=== PATIENT | male | born 1930 | race Caucasian/White ===

== ENCOUNTER 2017-03-09 14:46 | Inpatient (IN) | payer MEDICARE ==
[2017-03-09] MEDS ORDERED: Metoprolol Tartrate 5 MG/5 ML VIAL ONE (17:34)
[2017-03-09] MEDS ORDERED: Sodium Chloride 0.9% 1,000 ML IV SCH (20:15)
[2017-03-09] MEDS ORDERED: hydrALAZINE 20 MG/ML VIAL SLOW IVP PRN (22:09)
[2017-03-09] MEDS ORDERED: Ondansetron HCl/PF 4 MG/2 ML Vial IVP PRN (22:09)
[2017-03-09] MEDS ORDERED: Ondansetron ODT 4 MG TAB PO PRN (22:09)
[2017-03-09] MEDS ORDERED: Acetaminophen 650 MG Suppository PR PRN (22:09)
[2017-03-09] MEDS ORDERED: Cefepime 1 GM in Sodium Chloride 0.9% 100 ML IVPB SCH (22:30)
[2017-03-09] MEDS ORDERED: Vancomycin HCl 1 GM in Premix Bag 1 BAG IVPB SCH (23:00)
[2017-03-09] MEDS ORDERED: Diltiazem HCl 125 MG, Admixture Fee 1 EACH in Sodium Chloride 0.9% 100 ML SLOW IVP SCH (23:30)
[2017-03-10] MEDS: Cefepime 2 GM, Syringe 2.5 ML in Sterile Water 10 ML SLOW IVP SCH ×2 (00:01→12:52)
[2017-03-10] MEDS: D5 1/2 NS w/40 mEq KCL 1,000 ML IV SCH ×2 (00:16→17:16)
[2017-03-10] MEDS ORDERED: Digoxin 0.5 MG/2 ML AMP ONE ×2 (00:26→02:09)
--- NOTE | 2017-03-10 02:36 | HP ---
DATE OF ADMISSION: 03/09/2017 PRIMARY CARE PROVIDER: Dr. Ashwini Tejeda. CHIEF COMPLAINT: Atrial fibrillation with rapid ventricular response. HISTORY OF PRESENT ILLNESS: This is an 86-year-old male, who was recently discharged from [facility] to [facility], status post right femur and hip fracture, status post open reduction and internal fixation on 02/24/2017. The patient was s ent to [facility] for deconditioning, ambulatory training as well as concern for dysphagia an d aspiration. The patient had recently undergone a modified barium swallow evaluation on 03/08/2017 showing evidence of aspiration and penetration with plans for PEG tube placement on 03/09/2017. Th e patient was being prepped to move to the preoperative area at [facility] when he was disc overed with atrial fibrillation and rapid ventricular rates. The patient was transferred to the [facility] room at which the heart rate had improved into the 80s-90s and the patient was clinically sta ble. The patient had been noted with atrial fibrillation with rapid ventricular response during his admission to [facility] from 02/22/2017 through 03/06/2017. The patient had been placed o n sotalol therapy and aspirin after evaluation by the Cardiology Service and the Electrophysiology S ervice. The patient was not deemed an appropriate candidate for any aggressive intervention with me dical therapy recommended. In the emergency department, the patient received Lopressor 5 mg x1 dose and was transferred to the telemetry unit for further evaluation. PAST MEDICAL HISTORY: 1. Right hip fracture status post mechanical fall with open reduction and internal fixation on 02/06. 2. Atrial fibrillation with variable rate response, on aspirin therapy. 3. History of dementia. 4. History of delirium. 5. Hypertension. 6. Deconditioning. 7. Dysphagia with likely aspiration. 8. History of recurrent falls. 9. Osteoarthritis. 10. History of prostate hyperplasia. 11. History of skin cancer. PAST SURGICAL HISTORY: 1. Status post right total knee arthroplasty. 2. Status post skin cancer removals. 3. Status post hernia repair. 4. Status post open reduction and internal fixation of right hip and femur on 02/24/2017. CURRENT MEDICATIONS: Based on recent discharge 03/06/2017. 1. Aspirin 325 mg 1 tab p.o. daily. 2. Vitamin B12 of 1000 mcg p.o. daily. 3. Multivitamin 1 tab p.o. daily. 4. Simethicone 80 mg p.o. daily. 5. Sotalol 80 mg p.o. b.i.d. 6. Vision Formula Lutein tab 1 tablet p.o. daily. ALLERGIES: No known drug allergies. FAMILY HISTORY: Positive for coronary artery disease. SOCIAL HISTORY: The patient resides in [place], [place], retired. No current alcohol, tobacco or i llicit drug use. Accompanied by his son in the hospital. Currently, residing in [facility], status post right hip fracture. REVIEW OF SYSTEMS: The following complete review of systems was negative, unless otherwise mentione d in the HPI or below: Constitutional: Weight loss or gain, ability to conduct usual activities. Skin: Rash, itching. Eyes: Double vision, pain. ENT/Mouth: Nose bleeding, neck stiffness, pain, tenderness. Cardiovascular: Palpitations, dyspnea on exertion, orthopnea. Respiratory: Shortness of breath, wheezing, cough, hemoptysis, fever or night sweats. Gastrointestinal: Poor appetite, abdominal pain, heartburn, nausea, vomiting, constipation, or diar chivo. Genitourinary: Urgency, frequency, dysuria, nocturia. Musculoskeletal: Pain, swelling. Neurologic/Psychiatric: Anxiety, depression. Allergy/Immunologic: Skin rash, bleeding tendency. PHYSICAL EXAMINATION: VITAL SIGNS: Currently, blood pressure 133/74, pulse 101, respiratory rate 19, temperature 98 degre es Fahrenheit, O2 saturation 99% on 3 liters per minute by nasal cannula. GENERAL APPEARANCE: This is an 86-year-old male. Alert, minimally responsive, in no acut e distress. HEENT: Pupils are equal, round, and reactive to light and accommodation. Extraocular muscles are i ntact. No scleral icterus. Bilateral conjunctival injection. Nares patent. OP is clear. Oral mu cosa dry appearing. NECK: Supple, no cervical adenopathy, no thyromegaly, no carotid bruits, no JVD appreciated. Cervi sana spine with full active and passive range of motion. CHEST: Diminished breath sounds in the bases bilaterally. CARDIOVASCULAR: S1, S2 with irregular rate and rhythm. ABDOMEN: Flat, soft, nontender, nondistended. Bowel sounds are positive in all four quadrants. Th ere is no hepatosplenomegaly, no abdominal bruits, no rebound or guarding appreciated. EXTREMITIES: Warm and dry with fair turgor. No clubbing, cyanosis or asymmetric edema appreciated. Pulses are palpable distally at the dorsalis pedis, posterior tibial, and popliteal arteries bilat erally. Capillary refill less than 2 seconds. NEUROLOGIC: Cranial nerves II-XII are grossly intact. The patient not observed ambulatory during t his exam. Alert and oriented x1. PERTINENT LABORATORY AND X-RAY FINDINGS: Sodium 147, potassium is 3.1, chloride 110, CO2 of 27, BUN 21, creatinine 0.62, estimated GFR greater than 90, glucose 181, calcium 8.5. CBC showed a white b lood cell count of 15.8, hemoglobin 11, hematocrit 36, MCV 110, platelet count 420 with 65% neutroph ils. Portable chest x-ray dated 03/08/2017 showed bilateral infiltrates concerning for aspiration p neumonia. EKG dated 03/09/2017 by my interpretation shows atrial fibrillation with rapid ventricula r response, heart rates in the 150s to 160s. Normal R-wave progression noted in the precordial lead s. Normal axis. ST depression noted in leads V4 through V6. Current telemetry showing atrial fibr illation with heart rates in the 80s. ASSESSMENT AND PLAN: 1. Paroxysmal atrial fibrillation with rapid ventricular response. We will continue telemetry beverly toring. Resume sotalol 80 mg p.o. b.i.d. We will consider Cardizem infusion if heart rate increase s or becomes labile. Continue aspirin 325 mg daily. No anticoagulation due to history of recurrent falls and recent hip fracture. We will consult Cardiology Service in the a.m. for any further kitty mmendations. 2. Question of aspiration pneumonia. The patient with known history of dysphagia with plans for PE G tube placement on 03/09/2017. We will continue cefepime 1 gram IV q.12 hours with additional vanc omycin 1 gram IV q.12 hours. General pulmonary supportive measures. General aspiration precautions. 3. Dysphagia. Plan for PEG tube placement. We will consult GI Service for further evaluation and timing of procedure. We will continue telemetry monitoring as stated previously. N.p.o. pending ev aluation. Consult Speech Therapy in the a.m. 4. Hypernatremia. We will continue intravenous fluids and repeat sodium level in the a.m. 5. Hypokalemia. Mild. Continue potassium chloride supplementation and repeat potassium level in t he a.m. 6. Status post right hip fracture post fall. Continue general fall precautions. Pain control as c linically indicated. Return to inpatient rehabilitation after this admission. 7. Prophylaxis. Sequential compression devices while in bed. Pepcid 20 mg IV q.12 hours. General fall precautions. Speech therapy evaluation in the a.m. 8. Code status is DO NOT RESUSCITATE, DO NOT INTUBATE. Surrogate medical decision maker is patient 's son.
[2017-03-10 05:41] LABS: Band 16 % (5-11); Hematocrit 34.6 % (42.0-52.0); Hypochromia SLIGHT = 6-15 cells (100X) (0-5/hpf); Mean Platelet Volume 6.3 fL (7.4-10.4); Neutrophil 79 % (42-75); Red Blood Cell (RBC) Count 3.14 mill/uL (4.70-6.10); White Blood Cell (WBC) Count 15.8 thou/uL (4.8-10.8)
[2017-03-10 05:43] LABS: Anion Gap 13 mmol/L (10-20); BUN (Urea Nitrogen) 16 mg/dL (8.4-25.7); Calc. Creatinine Clearance 0 mL/min (70-130); Calcium 8.2 mg/dL (7.8-10.44); Carbon Dioxide 23 mmol/L (23-31); Chloride 113 mmol/L (98-107); Estimated GFR-MDRD Greater than 90
[2017-03-10] MEDS ORDERED: Sotalol HCl 80 MG TAB PO SCH (09:00)
[2017-03-10] MEDS: Famotidine/PF 20 mg/2ml Vial SLOW IVP SCH ×2 (10:27→20:50)
[2017-03-10] MEDS: Vancomycin HCl 500 MG in Sodium Chloride 0.9% 100 ML IVPB SCH ×2 (10:27→20:50)
--- NOTE | 2017-03-10 12:45 | PDOC.PN ---
- Subjective Encounter Start Date: 03/10/17 Encounter Start Time: 10:15 Subjective: lethargic, not oriented - Objective Resuscitation Status: Resuscitation Status DNR:Do Not Resuscitate MAR Reviewed: Yes Vital Signs & Weight: Vital Signs (12 hours) Temp Pulse Resp BP Pulse Ox 03/10/17 11:30 99.0 F 137 H 24 H 113/60 99 03/10/17 10:28 92 03/10/17 07:40 98.9 F 92 24 H 138/61 98 03/10/17 04:00 96.8 F L 116 H 20 124/67 96 03/10/17 02:31 95 03/10/17 02:15 147 H I&O: 03/09/17 03/10/17 03/11/17 06:59 06:59 06:59 Intake Total 755 Balance 755 Result Diagrams: 03/10/17 04:49 03/10/17 04:49 Phys Exam - Physical Examination HEENT: sclera anicteric dry mucosa Neck: no JVD, supple Respiratory: no rales rhonchi+ Cardiovascular: no significant murmur, irregular Gastrointestinal: soft, non-tender, positive bowel sounds Musculoskeletal: pulses present right hip surgical scar appears clean Neurological: non-focal Dx/Plan (1) Atrial fibrillation with RVR Code(s): I48.91 - UNSPECIFIED ATRIAL FIBRILLATION Status: Acute (2) Closed right femoral fracture Code(s): S72.91XA - UNSP FRACTURE OF RIGHT FEMUR, INIT FOR CLOS FX Status: Chronic Comment: had right femur ORIF on 02/24/2017 (3) Dementia Code(s): F03.90 - UNSPECIFIED DEMENTIA WITHOUT BEHAVIORAL DISTURBANCE Status: Chronic Qualifiers: Dementia type: Alzheimer's disease (4) Dysphagia Code(s): R13.10 - DYSPHAGIA, UNSPECIFIED Status: Chronic Qualifiers: Dysphagia type: oropharyngeal phase Qualified Code(s): R13.12 - Dysphagia, oropharyngeal phase - Plan is on cefepime and vanc for asp pna -: home dose sotalol with aspirin for afib -: peg per GI advice -: is on iv fluids with potassium supplement * . Review of Systems - Medications/Allergies Allergies/Adverse Reactions: Allergies Allergy/AdvReac Type Severity Reaction Status Date / Time No Known Drug Allergies Allergy Verified 02/22/17 01:50 Medications: Current Medications Acetaminophen (Tylenol) 650 mg [place] Q4H PRN PRN Reason: Headache/Fever or Mild Pain Famotidine (Pepcid) 20 mg SLOW IVP Q12HR [facility] Last Admin: 03/10/17 10:27 Dose: 20 mg Hydralazine HCl (Apresoline) 10 mg SLOW IVP Q4H PRN PRN Reason: Systolic BP > 180 Vancomycin HCl 500 mg/ Sodium (Chloride) 100 mls @ 100 mls/hr IVPB Q12HR [facility] Last Admin: 03/10/17 10:27 Dose: 100 mls Cefepime HCl 2 gm/ Syringe 2.5 (ml/ Sterile Water) 12.5 mls @ 150 mls/hr SLOW IVP 1200,2359 [facility] Last Admin: 03/10/17 00:01 Dose: 12.5 mls Potassium Chloride/Dextrose/Sod Cl (D5 1/2 Ns W/40 Meq Kcl) 1,000 mls @ 75 mls/ hr IV .[id number] [facility] Last Admin: 03/10/17 00:16 Dose: 1,000 mls Diltiazem HCl 125 mg/Miscellaneous Medication 1 each/ Sodium Chloride 125 mls @ 5 mls/hr SLOW IVP INF MORALES; As Directed PRN Reason: Protocol Last Admin: 03/10/17 00:08 Dose: 125 mls Ondansetron HCl (Zofran Odt) 4 mg PO Q6H PRN PRN Reason: Nausea/Vomiting Ondansetron HCl (Zofran) 4 mg IVP Q6H PRN PRN Reason: Nausea/Vomiting Sodium Chloride (Flush - Normal Saline) 10 ml IVF Q12HR [facility] Last Admin: 03/10/17 10:28 Dose: 10 ml Sodium Chloride (Flush - Normal Saline) 10 ml IVF PRN PRN PRN Reason: Saline Flush Sotalol HCl (Betapace) 80 mg PO BID [facility] Last Admin: 03/10/17 10:28 Dose: Not Given
[2017-03-10] MEDS ORDERED: Amiodarone HCl 150 MG in Dextrose 5% in Water 100 ML IVPB SCH ×2 (13:30)
--- NOTE | 2017-03-10 14:52 | CON ---
DATE OF CONSULTATION: 03/10/2017 HISTORY OF PRESENT ILLNESS: The patient is an unfortunate 86-year-old gentleman with a history of severe dementia, who was to undergo PEG placement and was noted to be in irregular heart rate. The patient was seen recently a after hip fracture. He was diagnosed with paroxysmal atrial fibrillation. The patient was felt to be at prohibitive risk for anticoagulation. He was placed on Betapace. The patient was to undergo surgery today when he was found to have a rapid irregular heart rhythm. The patient is unable to give a coherent history. PAST MEDICAL HISTORY: 1. Atrial flutter/fibrillation. 2. Recent hip fracture. 3. Dementia. 4. Hypertension. 5. History of multiple falls. PAST SURGICAL HISTORY: Knee surgery, skin surgery, and hernia repair. MEDICATIONS: Aspirin 325 and Betapace 80 b.i.d. ALLERGIES: No known drug allergies. REVIEW OF SYSTEMS: Unobtainable. SOCIAL HISTORY: He lives in [facility]. PHYSICAL EXAMINATION: GENERAL: A very thin gentleman, in no acute distress. VITAL SIGNS: Blood pressure 113/60, heart rate is 120, irregular. NECK: Full. LUNGS: Coarse breath sounds bilateral. HEART: Irregular rate and rhythm, normal S1, S2. ABDOMEN: Nondistended. EXTREMITIES: Showed trace edema. SKIN: Warm and dry. VASCULAR: Radial pulses are 2+. LABORATORY DATA: White blood cell count 15.8, hemoglobin 10.3, hematocrit 34.6 , platelets 364. Sodium 146, potassium 3.3, chloride 113, bicarbonate was 23, BUN 16, creatinine 0.53. The EKG obtained to reveal atrial fibrillation with a marked ST-T wave abnormality suggestive of ischemia. Telemetry monitoring revealed multifocal atrial tachycardia. IMPRESSION: 1. Atrial fibrillation. 2. Hypertension. 3. Dementia. 4. History of recent multiple falls. 5. Cachexia. PLAN: This gentleman has rapid atrial fibrillation We would recommend the patient switch to IV amiodarone. The patient is at prohibitive risk for anticoagulation. We will follow this patient with you through his hospitalization. [facility]
--- NOTE | 2017-03-10 15:05 | CON ---
DATE OF CONSULTATION: 03/10/2017 REQUESTING PHYSICIAN: Dr. Davidson. REASON FOR CONSULTATION: PEG tube placement. HISTORY OF PRESENT ILLNESS: Mr. Jonel Roy is an 86-year-old gentleman who was admitted to the [facility] yesterday. He had a recent hospitalization here after right hip fracture and underwent open reduction and internal fixation on 02/24/2017. He has been at [facility] for rehabilitation and d econditioning. Unfortunately while there, there has been concern for dysphagia. He has had multipl e episodes of aspiration and a modified barium swallow on 03/08/2017 showing evidence of aspiration and penetration. We had planned on PEG tube placement as an outpatient yesterday, but in the [facility] area, he was found to be in rapid ventricular response with his atrial fibrillation. He was thus transferred to the emergency room and subsequently admitted for rate control. Dr. Blanchard has seen him this morning and started him on amiodarone and it appears his heart rate has been up and d own since admission, but this is essentially asymptomatic. The patient is demented and has been sandra ling with delirium overnight. The patient's family is on board with plan for PEG tube placement. N o prior abdominal surgeries. PAST MEDICAL HISTORY: 1. Right hip fracture, status post fall with open reduction internal fixation on 02/24/2017. 2. Atrial fibrillation with variable rate response, on aspirin. 3. Dementia. 4. Delirium. 5. Hypertension. 6. Deconditioning. 7. Dysphagia with aspiration, oropharyngeal. 8. History of recurrent falls. 9. Osteoarthritis. 10. Prostatic hyperplasia. 11. Skin cancer. PAST SURGICAL HISTORY: 1. Right total knee arthroplasty. 2. Skin cancer removal. 3. Status post hernia repair. MEDICATIONS: Aspirin 325 mg daily, vitamin B12, multivitamin, simethicone, sotalol, Vision Formula with Lutein tab, amiodarone started today. ALLERGIES: No known drug allergies. FAMILY HISTORY: Positive for coronary artery disease. SOCIAL HISTORY: No current alcohol, tobacco or drug use. Currently residing at [facility] after recent right hip fracture. REVIEW OF SYSTEMS: Unable to obtain since the patient is demented and in delirium and is unable to report symptoms respond to questions appropriately. PHYSICAL EXAMINATION: VITAL SIGNS: Temperature 99.0, blood pressure 113/60, pulse 137, respirations 24 per minute, 99% ox ygen saturation on 2 liters nasal cannula. GENERAL: Elderly frail, chronically ill gentleman, lying in bed comfortably. MENTAL: He is alert, but disoriented. He is able to speak, but incoherently. SKIN: Several abrasions to the upper and lower extremities. No scars to the anterior abdomen and l eft upper quadrant. EYES: No scleral icterus. Extraocular movements intact. ENT: Mucous membranes moist, no oral lesions. LYMPH: No submandibular, supraclavicular lymphadenopathy. THYROID: Nontender to palpation. HEART: Irregular rate and rhythm. LUNGS: Diminished breath sounds at the bases bilaterally. No wheezing, no respiratory distress. ABDOMEN: Flat, soft, and nontender. Bowel sounds present. No scars to the anterior abdomen and th e left upper quadrant. EXTREMITIES: No peripheral edema. VESSELS: Radial pulses 2+ bilaterally. NEUROLOGICAL: Cranial nerves II through XII grossly intact. Moving all extremities. LABORATORY STUDIES: WBC 15.8, hemoglobin 10.3, platelets 364, sodium 146, potassium 3.3, BUN 16, cr eatinine 0.53, glucose 147, calcium 8.2. ASSESSMENT AND PLAN: 1. Oropharyngeal dysphagia with recurrent aspiration. 2. Atrial fibrillation with rapid ventricular response. I see no contraindication to proceeding wi PEG placement tomorrow. I again discussed this with the patient's and that is everyone's de sire for us to proceed. We will plan for PEG placement tomorrow morning. Please call back with any questions or concerns in the meantime.
[2017-03-10] MEDS: Amiodarone HCl 450 MG, Admixture Fee 1 EACH in Dextrose 5% in Water 250 ML IVPB SCH ×3 (17:16)
[2017-03-11] MEDS: Cefepime 2 GM, Syringe 2.5 ML in Sterile Water 10 ML SLOW IVP SCH ×2 (00:40→12:38)
[2017-03-11] MEDS: Amiodarone HCl 450 MG, Admixture Fee 1 EACH in Dextrose 5% in Water 250 ML IVPB SCH ×3 (03:14)
[2017-03-11] MEDS: D5 1/2 NS w/40 mEq KCL 1,000 ML IV SCH ×2 (03:29→10:38)
[2017-03-11] MEDS ORDERED: Artificial Tears 18 DROP/0.9 ML EA EYE PRN (08:01)
[2017-03-11] MEDS ORDERED: Bisacodyl 10 MG SUPP PR PRN (08:01)
[2017-03-11] MEDS ORDERED: Lidocaine 1% PF 5 ML VIAL ONE (08:07)
[2017-03-11] MEDS ORDERED: PHENYLEPHRINE-NS 100 MCG/ML 10 ML SYRINGE ONE (08:07)
[2017-03-11] MEDS ORDERED: Propofol 200 MG/20 ML VIAL ONE (08:07)
[2017-03-11] MEDS ORDERED: ePHEDrine/0.9% NaCl/PF SYRINGE 50 mg/10 ml ONE (08:07)
[2017-03-11] MEDS ORDERED: Promethazine HCl 25 MG/ML VIAL IM PRN (08:49)
[2017-03-11] MEDS ORDERED: Promethazine HCl 25 MG/ML VIAL SLOW IVP PRN (08:49)
[2017-03-11] MEDS ORDERED: Ondansetron HCl/PF 4 MG/2 ML Vial IVP PRN (08:49)
[2017-03-11] MEDS ORDERED: Cyanocobalamin (Vitamin B-12) 1,000 MCG TAB PO SCH (09:00)
[2017-03-11 10:02] LABS: Vancomycin, Trough 6.3 ug/mL
[2017-03-11] MEDS: Vancomycin HCl 1 GM in Premix Bag 1 BAG IVPB SCH ×2 (10:37→23:28)
[2017-03-11] MEDS: Aspirin 325 MG TAB PO SCH (10:38)
[2017-03-11] MEDS: Famotidine/PF 20 mg/2ml Vial SLOW IVP SCH ×2 (10:40→21:25)
--- NOTE | 2017-03-11 11:32 | PDOC.PN ---
- Subjective Encounter Start Date: 03/11/17 Encounter Start Time: 08:15 -: old records requested/rev Patient seen and examined. s/p PEG placement No overnight events - Objective Resuscitation Status: Resuscitation Status DNR:Do Not Resuscitate MAR Reviewed: Yes Vital Signs & Weight: Vital Signs (12 hours) Temp Pulse Resp BP Pulse Ox 03/11/17 07:20 98.6 F 80 24 H 142/65 H 99 03/11/17 04:00 99 160/74 H 03/10/17 23:31 95 Weight Weight 116 lb 11.2 oz I&O: 03/10/17 03/11/17 03/12/17 06:59 06:59 05:59 Intake Total 755 1183.4 Balance 755 1183.4 Result Diagrams: 03/10/17 04:49 03/10/17 04:49 EKG Reviewed by me: Yes Phys Exam - Physical Examination Constitutional: NAD cachectic HEENT: PERRLA, sclera anicteric dry MM Neck: no JVD, supple Respiratory: no wheezing, no rales, no rhonchi Cardiovascular: no significant murmur, irregular Gastrointestinal: soft, non-tender, no distention, positive bowel sounds peg + Musculoskeletal: no edema, pulses present unable to assess Lymphatic: no nodes Deviation from normal: unable to assess Skin: no rash, normal turgor Dx/Plan (1) S/P percutaneous endoscopic gastrostomy (PEG) tube placement Code(s): Z93.1 - GASTROSTOMY STATUS Status: Acute (2) Aspiration pneumonia Code(s): J69.0 - PNEUMONITIS DUE TO INHALATION OF FOOD AND VOMIT Status: Acute (3) Atrial fibrillation with RVR Code(s): I48.91 - UNSPECIFIED ATRIAL FIBRILLATION Status: Acute (4) Hypernatremia Code(s): E87.0 - HYPEROSMOLALITY AND HYPERNATREMIA Status: Acute (5) Hypokalemia Code(s): E87.6 - HYPOKALEMIA Status: Acute (6) Oropharyngeal dysphagia Code(s): R13.12 - DYSPHAGIA, OROPHARYNGEAL PHASE Status: Acute (7) Dementia Code(s): F03.90 - UNSPECIFIED DEMENTIA WITHOUT BEHAVIORAL DISTURBANCE Status: Chronic Qualifiers: Dementia type: Alzheimer's disease (8) Macrocytic anemia Code(s): D53.9 - NUTRITIONAL ANEMIA, UNSPECIFIED Status: Chronic - Plan cont current plan of care, plan discussed w/ family, continue antibiotics, social worker delinquency prevention * continue cefepime and vancomycin * start tube feeding later today and advance as tolerated. 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 * discussed with family bedside * medication reviewed as below * symptomatic treatment Review of Systems - Review of Systems Other: unable to review as pt is demented - Medications/Allergies Allergies/Adverse Reactions: Allergies Allergy/AdvReac Type Severity Reaction Status Date / Time No Known Drug Allergies Allergy Verified 02/22/17 01:50 Medications: Current Medications Acetaminophen (Tylenol) 650 mg ID Q4H PRN PRN Reason: Headache/Fever or Mild Pain Artificial Tears (Tears Naturale) 1 drop EA EYE BID PRN PRN Reason: Dry Eyes Aspirin (Aspirin) 325 mg PO DAILY [facility] Last Admin: 03/11/17 10:38 Dose: 325 mg Bisacodyl (Dulcolax) 10 mg ID DAILY PRN PRN Reason: Constipation Cyanocobalamin (Vitamin B-12) 1,000 mcg PO DAILY [facility] Last Admin: 03/11/17 10:38 Dose: 1,000 mcg Famotidine (Pepcid) 20 mg SLOW IVP Q12HR [facility] Last Admin: 03/11/17 10:40 Dose: 20 mg Fentanyl (Pacu-Sublimaze) 50 mcg SLOW IVP Q10MIN PRN PRN Reason: Moderate to Severe Pain (6-10) Stop: 03/11/17 11:49 Hydralazine HCl (Apresoline) 10 mg SLOW IVP Q4H PRN PRN Reason: Systolic BP > 180 Cefepime HCl 2 gm/ Syringe 2.5 (ml/ Sterile Water) 12.5 mls @ 150 mls/hr SLOW IVP 1200,2359 [facility] Last Admin: 03/11/17 00:40 Dose: 12.5 mls Potassium Chloride/Dextrose/Sod Cl (D5 1/2 Ns W/40 Meq Kcl) 1,000 mls @ 75 mls/ hr IV .[id number] [facility] Last Admin: 03/11/17 10:38 Dose: 1,000 mls Amiodarone HCl 450 mg/Miscellaneous Medication 1 each/ Dextrose/Water 259 mls @ 0 mls/hr IVPB INF MORALES; As Directed PRN Reason: Protocol Last Admin: 03/11/17 03:14 Dose: 259 mls Vancomycin HCl 1 gm/ Device 200 mls @ 200 mls/hr IVPB 1100,2300 [facility] Last Admin: 03/11/17 10:37 Dose: 200 mls Ondansetron HCl (Zofran Odt) 4 mg PO Q6H PRN PRN Reason: Nausea/Vomiting Ondansetron HCl (Zofran) 4 mg IVP Q6H PRN PRN Reason: Nausea/Vomiting Ondansetron HCl (Pacu-Zofran) 4 mg IVP ONE PRN PRN Reason: Nausea/Vomiting Stop: 03/11/17 11:49 Promethazine HCl (Pacu-Phenergan) 6.25 mg SLOW IVP ONE PRN PRN Reason: Nausea/Vomiting Stop: 03/11/17 11:49 Promethazine HCl (Pacu-Phenergan) 6.25 mg IM ONE PRN PRN Reason: Nausea/Vomiting Stop: 03/11/17 11:49 Sodium Chloride (Flush - Normal Saline) 10 ml IVF Q12HR [facility] Last Admin: 03/11/17 10:40 Dose: 10 ml Sodium Chloride (Flush - Normal Saline) 10 ml IVF PRN PRN PRN Reason: Saline Flush
[2017-03-11] MEDS: Vancomycin HCl 500 MG in Sodium Chloride 0.9% 100 ML IVPB SCH (11:39)
--- NOTE | 2017-03-11 12:46 | OP ---
DATE OF PROCEDURE: 03/11/2017 SURGEON: Donavan Siddiqi M.D. DOOR REPAIRER BUS SURGEON: None. PROCEDURE: Esophagogastroduodenoscopy with PEG placement and biopsies. INDICATION: 1. Oropharyngeal dysphagia. 2. Adult failure to thrive. MEDICATIONS: 1. See anesthesia record. 2. The patient is on cefepime 2 grams q.12 hours and vancomycin 500 mg q.12 h, and this serves as p eriprocedural prophylaxis. FINDINGS: After discussion of the risks, benefits and alternatives of the procedure, informed conse nt was obtained and witnessed. Pre-endoscopic cardiopulmonary examination was satisfactory. Timeou t was performed before sedation was achieved. Sedation was achieved with anesthesia assistance in [facility] endoscopy unit. The patient was placed in the supine position. A Pentax adult upper endoscope w as placed into the oropharynx and passed through the cricopharyngeus under direct visualization. Th e proximal esophageal mucosa appeared normal. The distal esophageal mucosa is salmon colored and ontiveros s appearance of Koehler's esophagus from 25 cm down to the top of the gastric folds at 34 cm from th e incisors. This is circumferential. In addition, in the distal esophagus from 30-34 cm there is w hat appears to be an ulcerated mass. This is nonobstructing, but is definitely a raised lesion and concerning for possible malignancy. Biopsies were taken of the esophageal mass for histology. The endoscope was advanced into the stomach. The patient has a medium sized hiatal hernia, otherwise fo rward and retroflexed views of the gastric mucosa were normal. The endoscope was passed through the pylorus and into the first and second portions of the duodenum, which also appeared normal. At thi s point, the endoscope was withdrawn back to the stomach. Using one-to-one pressure and transillumination methods a suitable site for PEG placement was locate d in the left upper quadrant quite high toward the xiphoid process. The area was prepped and draped in a sterile fashion. It was then anesthetized with subcutaneous lidocaine. A 1 cm vertical incis ion was made at the site, an introducer needle and catheter were then introduced percutaneously into the gastric lumen. A wire was passed through the catheter after the needles removed and the wire w as grasped with the snare. It was then withdrawn from the mouth. A 20-Ugandan traction PEG tube was affixed to the wire and pulled through and placed without difficulty. The external bumper clamped and ports were then affixed to the PEG tube. The endoscope was then used to examine the internal bu mper from the inside and this appeared to be in good position without complication. The endoscope w as then completely withdrawn and the patient allowed to recover. The external bumper was fixed at 3 cm at the end of the procedure. The patient tolerated the procedure well. There were no immediate post-procedure complications. IMPRESSION: 1. Successful placement of 20-Ugandan traction PEG tube to the left upper quadrant, with external bu mper at 3 cm. 2. Hiatal hernia. 3. Distal esophageal mass with ulceration from 30-34 cm, biopsied to rule out possible malignancy. 4. [place]-colored mucosa from 25-34 cm, consistent with Koehler's esophagus. RECOMMENDATIONS: 1. Follow up results of the esophageal mass biopsies. 2. Continue H2 ana maria. 3. May use the PEG tube for medications now. 4. May use the PEG tube for tube feeds in 4 hours. 5. I will plan to come by tomorrow to check on the PEG tube.
[2017-03-12] MEDS: Cefepime 2 GM, Syringe 2.5 ML in Sterile Water 10 ML SLOW IVP SCH ×3 (01:12→21:57)
[2017-03-12] MEDS: D5 1/2 NS w/40 mEq KCL 1,000 ML IV SCH ×2 (01:13→17:55)
[2017-03-12 05:58] LABS: #Eosinphils 0.1 thou/uL (0.0-0.7); #Monocytes 0.7 thou/uL (0.11-0.59); #Neutrophils 12.9 thou/uL (1.40-6.50); %Basophils 0.1 % (0.0-1.0); %Eosinophils 0.5 % (0.0-10.0); %Lymphocytes 6.7 % (21.0-51.0); %Monocytes 4.5 % (0.0-10.0); Hematocrit 31.5 % (42.0-52.0); Mean Platelet Volume 6.1 fL (7.4-10.4); Red Blood Cell (RBC) Count 2.96 mill/uL (4.70-6.10); White Blood Cell (WBC) Count 14.6 thou/uL (4.8-10.8)
[2017-03-12 06:18] LABS: ALT (SGPT) 43 U/L (8-55); AST (SGOT) 50 U/L (5-34); Alkaline Phosphatase 131 U/L (40-150); Anion Gap 9 mmol/L (10-20); BUN (Urea Nitrogen) 9 mg/dL (8.4-25.7); Bilirubin, Total 1.5 mg/dL (0.2-1.2); Calc. Creatinine Clearance 69 mL/min (70-130); Calcium 7.7 mg/dL (7.8-10.44); Carbon Dioxide 25 mmol/L (23-31); Chloride 107 mmol/L (98-107); Estimated GFR-MDRD Greater than 90; Globulin 2.5 g/dL (2.4-3.5); Protein, Total 4.6 g/dL (5.8-8.1)
[2017-03-12] MEDS ORDERED: Eucerin (Mineral Oil/Petrolatum,White) 30 gm Jar TOP PRN (07:12)
[2017-03-12] MEDS ORDERED: Artificial Tears 18 DROP/0.9 ML EA EYE PRN (07:12)
[2017-03-12] MEDS ORDERED: Fleet Enema 133 ML BOT PR PRN (07:12)
[2017-03-12] MEDS ORDERED: Milk Of Magnesia 30 ML UDCUP PER TUBE PRN (07:12)
[2017-03-12] MEDS ORDERED: Mag-Al 1200 mg/1200 mg/30 ML UDCUP PER TUBE PRN (07:12)
[2017-03-12] MEDS ORDERED: Sodium Chloride 0.65% Nasal 44 ML BOT EA NARE PRN (07:12)
[2017-03-12] MEDS ORDERED: Loratadine 10 MG TAB PER TUBE PRN (07:12)
[2017-03-12] MEDS ORDERED: Acetaminophen 325 MG TAB PER TUBE PRN (07:12)
[2017-03-12] MEDS ORDERED: Diabetic Tussin 200 MG/10 ML UDCUP PER TUBE PRN (07:12)
[2017-03-12] MEDS ORDERED: Ondansetron ODT 4 MG TAB PER TUBE PRN (07:13)
[2017-03-12] MEDS ORDERED: Potassium Chloride 20 MEQ TAB PER TUBE SCH (07:15)
[2017-03-12] MEDS: Folic Acid 1 MG TAB PER TUBE SCH (09:19)
[2017-03-12] MEDS: Famotidine 20 MG TAB PER TUBE SCH ×2 (09:19→21:35)
[2017-03-12] MEDS: Aspirin 325 MG TAB PO SCH (09:19)
[2017-03-12] MEDS: Multivitamin W/ Minerals 1 TAB PER TUBE SCH (09:19)
[2017-03-12] MEDS: Cyanocobalamin (Vitamin B-12) 1,000 MCG TAB PER TUBE SCH (09:19)
--- NOTE | 2017-03-12 09:48 | PDOC.PN ---
- Subjective Encounter Start Date: 03/12/17 Encounter Start Time: 08:30 Patient seen and examined. No new complaints. No overnight events - Objective Resuscitation Status: Resuscitation Status DNR:Do Not Resuscitate MAR Reviewed: Yes Vital Signs & Weight: Vital Signs (12 hours) Temp Pulse Resp BP Pulse Ox 03/12/17 07:57 97.9 F 68 18 147/70 H 99 03/12/17 04:15 98.4 F 76 20 140/58 L 100 03/12/17 04:14 98 03/11/17 23:30 98.8 F 87 24 H 160/74 H 98 03/11/17 23:25 98.8 F 87 24 H 160/74 H 98 Weight Admit Weight 116 lb 11.2 oz Weight 119 lb 4.8 oz I&O: 03/11/17 03/12/17 03/13/17 07:59 06:59 06:59 Intake Total Balance Result Diagrams: 03/12/17 05:51 03/12/17 05:51 EKG Reviewed by me: Yes Phys Exam - Physical Examination Constitutional: NAD HEENT: PERRLA, moist MMs, sclera anicteric Neck: no JVD, supple Respiratory: no wheezing, no rales, no rhonchi Cardiovascular: RRR, no significant murmur, no rub Gastrointestinal: soft, non-tender, no distention, positive bowel sounds PEG Musculoskeletal: no edema, pulses present Lymphatic: no nodes Psychiatric: normal affect Skin: no rash, normal turgor Dx/Plan (1) S/P percutaneous endoscopic gastrostomy (PEG) tube placement Code(s): Z93.1 - GASTROSTOMY STATUS Status: Acute (2) Aspiration pneumonia Code(s): J69.0 - PNEUMONITIS DUE TO INHALATION OF FOOD AND VOMIT Status: Acute (3) Atrial fibrillation with RVR Code(s): I48.91 - UNSPECIFIED ATRIAL FIBRILLATION Status: Acute (4) Hypernatremia Code(s): E87.0 - HYPEROSMOLALITY AND HYPERNATREMIA Status: Acute (5) Hypokalemia Code(s): E87.6 - HYPOKALEMIA Status: Acute (6) Oropharyngeal dysphagia Code(s): R13.12 - DYSPHAGIA, OROPHARYNGEAL PHASE Status: Acute (7) Dementia Code(s): F03.90 - UNSPECIFIED DEMENTIA WITHOUT BEHAVIORAL DISTURBANCE Status: Chronic Qualifiers: Dementia type: Alzheimer's disease (8) Macrocytic anemia Code(s): D53.9 - NUTRITIONAL ANEMIA, UNSPECIFIED Status: Chronic - Plan cont current plan of care, plan discussed w/ family, continue antibiotics * continue tube feeding * repeat labs tomorrow * continue IV antibiotics as per below * medication reviewed as below * symptomatic treatment * expecting discharge tomorrow to rehab. * replace potassium Review of Systems - Review of Systems Other: not reliable due to dementia - Medications/Allergies Allergies/Adverse Reactions: Allergies Allergy/AdvReac Type Severity Reaction Status Date / Time No Known Drug Allergies Allergy Verified 02/22/17 01:50 Medications: Current Medications Acetaminophen (Tylenol) 650 mg [place] Q4H PRN PRN Reason: Headache/Fever or Mild Pain Acetaminophen (Tylenol) 650 mg PER TUBE Q4H PRN PRN Reason: Headache/Fever or Mild Pain Al Hydroxide/Mg Hydroxide (Maalox) 15 ml PER TUBE Q4H PRN PRN Reason: Heartburn or Indigestion Amiodarone HCl (Cordarone) 400 mg PO BID [facility] Last Admin: 03/12/17 09:19 Dose: 400 mg Artificial Tears (Tears Naturale) 0 drop EA EYE PRN PRN PRN Reason: Dry Eyes Aspirin (Aspirin) 325 mg PO DAILY [facility] Last Admin: 03/12/17 09:19 Dose: 325 mg Bisacodyl (Dulcolax) 10 mg [place] DAILY PRN PRN Reason: Constipation Cyanocobalamin (Vitamin B-12) 1,000 mcg PER TUBE DAILY [facility] Last Admin: 03/12/17 09:19 Dose: 1,000 mcg Famotidine (Pepcid) 20 mg PER TUBE BID [facility] Last Admin: 03/12/17 09:19 Dose: 20 mg Folic Acid (Folvite) 1 mg PER TUBE DAILY [facility] Last Admin: 03/12/17 09:19 Dose: 1 mg Guaifenesin (Robitussin Sf) 200 mg PER TUBE Q4H PRN PRN Reason: Cough Hydralazine HCl (Apresoline) 10 mg SLOW IVP Q4H PRN PRN Reason: Systolic BP > 180 Cefepime HCl 2 gm/ Syringe 2.5 (ml/ Sterile Water) 12.5 mls @ 150 mls/hr SLOW IVP 1200,2359 [facility] Last Admin: 03/12/17 01:12 CDT Dose: 12.5 mls Potassium Chloride/Dextrose/Sod Cl (D5 1/2 Ns W/40 Meq Kcl) 1,000 mls @ 75 mls/ hr IV .[id number] [facility] Last Admin: 03/12/17 01:13 CDT Dose: 1,000 mls Vancomycin HCl 1 gm/ Device 200 mls @ 200 mls/hr IVPB 1100,2300 [facility] Last Admin: 03/11/17 23:28 Dose: 200 mls Iron/Minerals/Multivitamins (Theragran M) 1 tab PER TUBE DAILY [facility] Last Admin: 03/12/17 09:19 Dose: 1 tab Loratadine (Claritin) 10 mg PER TUBE DAILYPRN PRN PRN Reason: Sinus Symptoms Magnesium Hydroxide (Milk Of Magnesium) 30 ml PER TUBE DAILYPRN PRN PRN Reason: Constipation Mineral Oil/White Petrolatum (Eucerin Cream) 0 gm TOP BIDPRN PRN PRN Reason: Dry Skin Ondansetron HCl (Zofran) 4 mg IVP Q6H PRN PRN Reason: Nausea/Vomiting Ondansetron HCl (Zofran Odt) 4 mg PER TUBE Q6H PRN PRN Reason: Nausea/Vomiting Sodium Biphosphate/Sodium Phosphate (Fleet Enema) 133 ml [place] ONE PRN PRN Reason: Constipation Stop: 03/12/17 12:00 Sodium Chloride (Flush - Normal Saline) 10 ml IVF Q12HR [facility] Last Admin: 03/12/17 09:20 Dose: 10 ml Sodium Chloride (Flush - Normal Saline) 10 ml IVF PRN PRN PRN Reason: Saline Flush Sodium Chloride ([place] Nasal [place] 0.65%) 0 ml EA NARE QIDPRN PRN PRN Reason: Nasal Congestion
[2017-03-12] MEDS ORDERED: VANCOMYCIN IVPB PRN (10:17)
--- NOTE | 2017-03-12 10:21 | PRG ---
DATE OF SERVICE: 03/12/2017 GI INPATIENT DAILY PROGRESS NOTE SUBJECTIVE: Mr. Roy is doing fine. No acute complaints. Tube feeds are going in and are well t olerated. OBJECTIVE: VITAL SIGNS: Temperature 97.9, pulse 68, blood pressure 147/70, and 99% oxygen saturation on room a ir. GENERAL: No acute distress. HEART: Regular rate and rhythm. LUNGS: Clear to auscultation bilaterally. ABDOMEN: PEG site looks good. No drainage. I have adjusted the bumper slightly to 3.5 cm. EXTREMITIES: No peripheral edema. LABORATORY STUDIES: Sodium 138, potassium 3.4, BUN 9, creatinine 0.57, total bilirubin 1.5, alkalin e phosphatase 131, AST 50, ALT 43, hemoglobin 9.5, WBC 14.6, and platelets 251. ASSESSMENT AND PLAN: 1. Oropharyngeal dysphagia, status post successful percutaneous endoscopic gastrostomy tube placeme nt yesterday. 2. Hiatal hernia. 3. Distal esophageal mass, ulcerative, concerning for possible malignancy. This was biopsied yeste rday, it was an incidental and somewhat surprising finding on the esophagogastroduodenoscopy. Uncle ar endoscopically whether this might represent early malignancy or just severe erosive esophagitis w ith edematous changes. Awaiting biopsy results. I see no reason he could not be discharged back to his rehabilitation facility while awaiting the biopsy results. We will contact him and his family with results when they are available.
[2017-03-12] MEDS: Vancomycin HCl 1 GM in Premix Bag 1 BAG IVPB SCH ×2 (11:20→21:36)
[2017-03-12 22:33] LABS: Vancomycin, Trough 12.8 ug/mL
[2017-03-13 05:36] LABS: ALT (SGPT) 60 U/L (8-55); AST (SGOT) 72 U/L (5-34); Alkaline Phosphatase 142 U/L (40-150); Anion Gap 11 mmol/L (10-20); BUN (Urea Nitrogen) 10 mg/dL (8.4-25.7); Bilirubin, Total 1.1 mg/dL (0.2-1.2); Calc. Creatinine Clearance 72 mL/min (70-130); Calcium 7.3 mg/dL (7.8-10.44); Carbon Dioxide 22 mmol/L (23-31); Chloride 104 mmol/L (98-107); Estimated GFR-MDRD Greater than 90; Globulin 2.5 g/dL (2.4-3.5); Magnesium 1.7 mg/dL (1.6-2.6); Protein, Total 4.3 g/dL (5.8-8.1)
[2017-03-13 05:40] LABS: Phosphorus 1.2 mg/dL (2.3-4.7)
[2017-03-13 05:54] LABS: Band 6 % (5-11); Hematocrit 30.9 % (42.0-52.0); Mean Platelet Volume 6.6 fL (7.4-10.4); Metamyelocyte 1 % (0-0); Neutrophil 81 % (42-75); Red Blood Cell (RBC) Count 2.89 mill/uL (4.70-6.10)
[2017-03-13] MEDS ORDERED: Potassium Phosphate 15 MMOL, Admixture Fee 1 EACH in Sodium Chloride 0.9% 250 ML 250 ML IVPB SCH (08:00)
[2017-03-13] MEDS: Folic Acid 1 MG TAB PER TUBE SCH (09:21)
[2017-03-13] MEDS: Multivitamin W/ Minerals 1 TAB PER TUBE SCH (09:21)
[2017-03-13] MEDS: Cyanocobalamin (Vitamin B-12) 1,000 MCG TAB PER TUBE SCH (09:21)
[2017-03-13] MEDS: Aspirin 325 MG TAB PO SCH (09:21)
[2017-03-13] MEDS: Famotidine 20 MG TAB PER TUBE SCH ×2 (09:21→22:05)
--- NOTE | 2017-03-13 11:00 | PDOC.CTH ---
<Marguerite Acosta - Last Filed: 03/13/17 11:03> Cardiology Progress Note - Subjective The pt was seen and examined. No overnight events. No cardiac complaints. is at bedside. - Objective Vital Signs Temp Pulse Resp BP Pulse Ox 03/13/17 08:58 98.6 F 78 22 H 152/70 H 98 03/13/17 05:28 99 03/13/17 04:00 97.6 F 76 18 144/86 H 97 Admit Weight 116 lb 11.2 oz Weight 125 lb 03/12/17 03/13/17 03/14/17 06:59 06:59 06:59 Intake Total 3819 30 Balance 3819 30 - Physical Examination General/Neuro: other: (lethergic and confused) Neck: no JVD present Lungs: other: (coase and diminished at bases) Heart: RRR Abdomen: soft Extremities: other: (No edemas) - Telemetry Telemetry Rhythm: SR with PACs and HR 80s - Labs Result Diagrams: 03/13/17 04:27 03/13/17 04:27 - Assessment/Plan 1. Afib with RVR - Remain SR with HR since 03/11/17; HR well controlled with current medication, ASA and Amiodarone 400mg BID; cont. monitor on tele 2. S/P PEG tube placement on 03/11/17 - The pt has been tolerating TF; managed by GI and PCP 3. Aspiration pneumonia - on IV Antibiotics 4. dysphagia - NPO 5. Dementia - family at bedside *From Cardiac standpoint, the pt is stable to tx to Rehab; The pt will f/u with Dr Rubio' office within 2-3 wks after he is d/kristal from Rehab to home. Thank you very much for cardiac consult request Review of Systems - Review of Systems Constitutional: reports: no symptoms reported EENTM: reports: no symptoms reported Respiratory: reports: no symptoms reported Cardiac (ROS): reports: no symptoms reported ABD/GI: reports: no symptoms reported : reports: no symptoms reported Musculoskeletal: reports: no symptoms reported Skin: reports: no symptoms reported <Cooper Rubio - Last Filed: 03/13/17 15:35> Cardiology Progress Note - Objective Vital Signs Temp Pulse Resp BP Pulse Ox 03/13/17 12:00 98.6 F 66 20 149/68 H 100 11/06/17 08:58 98.6 F 78 22 H 152/70 H 98 03/13/17 05:28 99 03/13/17 04:00 97.6 F 76 18 144/86 H 97 Admit Weight 116 lb 11.2 oz Weight 125 lb 03/12/17 03/13/17 03/14/17 06:59 06:59 06:59 Intake Total 3819 30 Balance 3819 30 - Labs Result Diagrams: 03/13/17 04:27 03/13/17 04:27 - Assessment/Plan Pt. seen and evaluated by me. I agree with the A/P by the DRY GOODS CLERK. He remains in NSR. Continue amiodarone. After one week at 400mg bid then decrease to 200 mg biday.S/P peg tube. This will assist in giving his medications.
[2017-03-13] MEDS: Vancomycin HCl 1 GM in Premix Bag 1 BAG IVPB SCH ×2 (11:43→23:45)
--- NOTE | 2017-03-13 13:38 | PDOC.PN ---
- Subjective Encounter Start Date: 03/13/17 Encounter Start Time: 08:30 Patient seen and examined. No overnight events - Objective Resuscitation Status: Resuscitation Status DNR:Do Not Resuscitate MAR Reviewed: Yes Vital Signs & Weight: Vital Signs (12 hours) Temp Pulse Resp BP Pulse Ox 03/13/17 12:00 98.6 F 66 20 149/68 H 100 03/13/17 08:58 98.6 F 78 22 H 152/70 H 98 03/13/17 05:28 99 03/13/17 04:00 97.6 F 76 18 144/86 H 97 Weight Admit Weight 116 lb 11.2 oz Weight 125 lb I&O: 03/12/17 03/13/17 03/14/17 06:59 06:59 06:59 Intake Total 3819 30 Balance 3819 30 Result Diagrams: 03/13/17 04:27 03/13/17 04:27 EKG Reviewed by me: Yes Phys Exam - Physical Examination Constitutional: NAD HEENT: PERRLA, moist MMs, sclera anicteric Neck: no JVD, supple Respiratory: no wheezing, no rales, no rhonchi Cardiovascular: RRR, no significant murmur, no rub Gastrointestinal: soft, non-tender, no distention, positive bowel sounds peg+ Musculoskeletal: no edema, pulses present Neurological: non-focal Lymphatic: no nodes Psychiatric: normal affect Skin: no rash, normal turgor Dx/Plan (1) S/P percutaneous endoscopic gastrostomy (PEG) tube placement Code(s): Z93.1 - GASTROSTOMY STATUS Status: Acute (2) Aspiration pneumonia Code(s): J69.0 - PNEUMONITIS DUE TO INHALATION OF FOOD AND VOMIT Status: Acute (3) Atrial fibrillation with RVR Code(s): I48.91 - UNSPECIFIED ATRIAL FIBRILLATION Status: Acute (4) Hypernatremia Code(s): E87.0 - HYPEROSMOLALITY AND HYPERNATREMIA Status: Acute (5) Hypokalemia Code(s): E87.6 - HYPOKALEMIA Status: Acute (6) Oropharyngeal dysphagia Code(s): R13.12 - DYSPHAGIA, OROPHARYNGEAL PHASE Status: Acute (7) Dementia Code(s): F03.90 - UNSPECIFIED DEMENTIA WITHOUT BEHAVIORAL DISTURBANCE Status: Chronic Qualifiers: Dementia type: Alzheimer's disease (8) Macrocytic anemia Code(s): D53.9 - NUTRITIONAL ANEMIA, UNSPECIFIED Status: Chronic - Plan cont current plan of care, plan discussed w/ family, continue antibiotics, social media developer * pt is not a good candidate for in rehab * he will be ok at [facility] * follow up on pathology report * medication reviewed as below * symptomatic treatment * discussed with family * po amiodarone taper. Review of Systems - Review of Systems Other: not reliable due to dementia - Medications/Allergies Allergies/Adverse Reactions: Allergies Allergy/AdvReac Type Severity Reaction Status Date / Time No Known Drug Allergies Allergy Verified 02/22/17 01:50 Medications: Current Medications Acetaminophen (Tylenol) 650 mg [place] Q4H PRN PRN Reason: Headache/Fever or Mild Pain Acetaminophen (Tylenol) 650 mg PER TUBE Q4H PRN PRN Reason: Headache/Fever or Mild Pain Al Hydroxide/Mg Hydroxide (Maalox) 15 ml PER TUBE Q4H PRN PRN Reason: Heartburn or Indigestion Amiodarone HCl (Cordarone) 400 mg PO BID [facility] Last Admin: 03/13/17 09:21 Dose: 400 mg Artificial Tears (Tears Naturale) 0 drop EA EYE PRN PRN PRN Reason: Dry Eyes Aspirin (Aspirin) 325 mg PO DAILY [facility] Last Admin: 03/13/17 09:21 Dose: 325 mg Bisacodyl (Dulcolax) 10 mg [place] DAILY PRN PRN Reason: Constipation Cyanocobalamin (Vitamin B-12) 1,000 mcg PER TUBE DAILY [facility] Last Admin: 03/13/17 09:21 Dose: 1,000 mcg Famotidine (Pepcid) 20 mg PER TUBE BID [facility] Last Admin: 03/13/17 09:21 Dose: 20 mg Folic Acid (Folvite) 1 mg PER TUBE DAILY [facility] Last Admin: 03/13/17 09:21 Dose: 1 mg Guaifenesin (Robitussin Sf) 200 mg PER TUBE Q4H PRN PRN Reason: Cough Hydralazine HCl (Apresoline) 10 mg SLOW IVP Q4H PRN PRN Reason: Systolic BP > 180 Cefepime HCl 2 gm/ Syringe 2.5 (ml/ Sterile Water) 12.5 mls @ 150 mls/hr SLOW IVP 1200,2359 [facility] Last Admin: 03/12/17 21:57 Dose: 12.5 mls Potassium Chloride/Dextrose/Sod Cl (D5 1/2 Ns W/40 Meq Kcl) 1,000 mls @ 75 mls/ hr IV .[id number] [facility] Last Admin: 03/12/17 17:55 Dose: 1,000 mls Vancomycin HCl 1 gm/ Device 200 mls @ 200 mls/hr IVPB 1100,2300 [facility] Last Admin: 03/13/17 11:43 Dose: 200 mls Iron/Minerals/Multivitamins (Theragran M) 1 tab PER TUBE DAILY [facility] Last Admin: 03/13/17 09:21 Dose: 1 tab Loratadine (Claritin) 10 mg PER TUBE DAILYPRN PRN PRN Reason: Sinus Symptoms Magnesium Hydroxide (Milk Of Magnesium) 30 ml PER TUBE DAILYPRN PRN PRN Reason: Constipation Mineral Oil/White Petrolatum (Eucerin Cream) 0 gm TOP BIDPRN PRN PRN Reason: Dry Skin Miscellaneous Medication (Pharmacy To Dose) 1 each IVPB PRN PRN PRN Reason: PHARMACY TO DOSE Ondansetron HCl (Zofran) 4 mg IVP Q6H PRN PRN Reason: Nausea/Vomiting Ondansetron HCl (Zofran Odt) 4 mg PER TUBE Q6H PRN PRN Reason: Nausea/Vomiting Sodium Chloride (Flush - Normal Saline) 10 ml IVF Q12HR [facility] Last Admin: 03/13/17 09:22 Dose: 10 ml Sodium Chloride (Flush - Normal Saline) 10 ml IVF PRN PRN PRN Reason: Saline Flush Sodium Chloride ([place] Nasal [place] 0.65%) 0 ml EA NARE QIDPRN PRN PRN Reason: Nasal Congestion
[2017-03-13] MEDS: D5 1/2 NS w/40 mEq KCL 1,000 ML IV SCH ×2 (13:46→18:42)
[2017-03-13] MEDS: Cefepime 2 GM, Syringe 2.5 ML in Sterile Water 10 ML SLOW IVP SCH (13:52)
[2017-03-13 22:19] LABS: Vancomycin, Trough 14.9 ug/mL
[2017-03-14] MEDS: Cefepime 2 GM, Syringe 2.5 ML in Sterile Water 10 ML SLOW IVP SCH ×2 (00:56→12:28)
[2017-03-14] MEDS: Cyanocobalamin (Vitamin B-12) 1,000 MCG TAB PER TUBE SCH (10:16)
[2017-03-14] MEDS: Aspirin 325 MG TAB PO SCH (10:16)
[2017-03-14] MEDS: Folic Acid 1 MG TAB PER TUBE SCH (10:16)
[2017-03-14] MEDS: Multivitamin W/ Minerals 1 TAB PER TUBE SCH (10:16)
[2017-03-14] MEDS: Famotidine 20 MG TAB PER TUBE SCH ×2 (10:17→22:16)
[2017-03-14] MEDS: D5 1/2 NS w/40 mEq KCL 1,000 ML IV SCH (10:17)
--- NOTE | 2017-03-14 10:37 | PDOC.CTH ---
<Marguerite Acosta - Last Filed: 03/14/17 10:37> Cardiology Progress Note - Subjective The pt was seen and examined. No overnight events. No cardiac complaints. He opens his eyes with stimulation; however, he cannot follow any commands or answer questions properly - Objective Vital Signs Temp Pulse Resp BP Pulse Ox 03/14/17 08:00 98.0 F 68 19 140/76 99 03/14/17 04:00 97.3 F L 69 20 136/74 100 03/13/17 23:17 99 Admit Weight 116 lb 11.2 oz Weight 133 lb 11.2 oz 03/13/17 03/14/17 03/15/17 06:59 06:59 06:59 Intake Total 3819 1833 30 Balance 3819 1833 30 - Physical Examination General/Neuro: other: (confused) Neck: no JVD present Lungs: CTA Heart: RRR Abdomen: soft Extremities: other: (No edemas) - Telemetry Telemetry Rhythm: SR with PACs with HR 70s - Labs Result Diagrams: 03/13/17 04:27 03/13/17 04:27 - Assessment/Plan 1. Afib with RVR - Remain in SR with HR since 03/11/17; HR well controlled with current medication, ASA and Amiodarone 400mg BID; cont. monitor on tele; Cont. Amiodarone 400mg BID for 1wk then decrease to 200mg BID 2. S/P PEG tube placement on 03/11/17 - The pt has been tolerating TF; managed by GI and PCP 3. Aspiration pneumonia - on IV Antibiotics 4. dysphagia - NPO 5. Dementia - family at bedside MAR reviewed Review of Systems - Review of Systems Constitutional: reports: see HPI EENTM: reports: see HPI Respiratory: reports: see HPI Cardiac (ROS): reports: see HPI ABD/GI: reports: see HPI : reports: see HPI Musculoskeletal: reports: see HPI Skin: reports: see HPI Neurological: reports: see HPI <Cooper Rubio - Last Filed: 03/14/17 16:33> Cardiology Progress Note - Objective Vital Signs Temp Pulse Pulse Pulse Resp BP BP 03/14/17 16:00 97.5 F L 70 17 03/14/17 12:00 97.9 F 66 18 03/14/17 10:11 70 68 140/74 140/76 11/07/17 08:00 98.0 F 68 19 BP Pulse Ox Pulse Ox Pulse Ox 03/14/17 16:00 142/75 H 99 03/14/17 12:00 138/72 98 03/14/17 10:11 100 100 03/14/17 08:00 140/76 99 Admit Weight 116 lb 11.2 oz Weight 133 lb 11.2 oz 03/13/17 03/14/17 03/15/17 06:59 06:59 06:59 Intake Total 3819 1833 90 Balance 3819 1833 90 - Labs Result Diagrams: 03/13/17 04:27 03/13/17 04:27 - Assessment/Plan Pt. seen and evaluated by me. I agree with the A/P by the SOFTWARE TEST ANALYST. He remains in NSR. Continue present meds. Should be able to return to rehab. soon.
[2017-03-14] MEDS: Vancomycin HCl 1 GM in Premix Bag 1 BAG IVPB SCH (11:40)
--- NOTE | 2017-03-14 14:17 | PDOC.PN ---
- Subjective Encounter Start Date: 03/14/17 Encounter Start Time: 14:15 Subjective: says that he feels better. at bedside reports the same. -: c/o R arm and forearm swelling & pain - Objective Resuscitation Status: Resuscitation Status DNR:Do Not Resuscitate MAR Reviewed: Yes Vital Signs & Weight: Vital Signs (12 hours) Temp Pulse Pulse Pulse Resp BP BP 03/14/17 12:00 97.9 F 66 18 03/14/17 10:11 70 68 140/74 140/76 03/14/17 08:00 98.0 F 68 19 03/14/17 04:00 97.3 F L 69 20 BP Pulse Ox Pulse Ox Pulse Ox 03/14/17 12:00 138/72 98 03/14/17 10:11 100 100 03/14/17 08:00 140/76 99 03/14/17 04:00 136/74 100 Weight Admit Weight 116 lb 11.2 oz Weight 133 lb 11.2 oz I&O: 03/13/17 03/14/17 03/15/17 06:59 06:59 06:59 Intake Total 3819 1833 60 Balance 3819 1833 60 Result Diagrams: 03/13/17 04:27 03/13/17 04:27 Additional Labs: Laboratory Tests 03/10/17 03/12/17 03/13/17 04:49 05:51 04:27 WBC 15.8 H 14.6 H 14.0 H Phys Exam - Physical Examination Constitutional: NAD weak and tired looking but awake and alert.follows simple commands HEENT: PERRLA, moist MMs, sclera anicteric, oral pharynx no lesions Neck: no nodes, no JVD, supple, full ROM Respiratory: no wheezing, no rales, no rhonchi, clear to auscultation bilateral Cardiovascular: RRR, no significant murmur Gastrointestinal: soft, non-tender, no distention, positive bowel sounds Musculoskeletal: pulses present, edema present (R forearm around elbow w/o erythema+tenderness) Neurological: non-focal, normal sensation, moves all 4 limbs Lymphatic: no nodes Psychiatric: normal affect Skin: no rash Dx/Plan (1) Aspiration pneumonia Code(s): J69.0 - PNEUMONITIS DUE TO INHALATION OF FOOD AND VOMIT Status: Acute Comment: on iv Abx (2) Atrial fibrillation with RVR Code(s): I48.91 - UNSPECIFIED ATRIAL FIBRILLATION Status: Acute Comment: NSR now. On Amiodarone and ASA (3) Hypernatremia Code(s): E87.0 - HYPEROSMOLALITY AND HYPERNATREMIA Status: Resolved (4) Hypokalemia Code(s): E87.6 - HYPOKALEMIA Status: Resolved (5) Oropharyngeal dysphagia Code(s): R13.12 - DYSPHAGIA, OROPHARYNGEAL PHASE Status: Acute Comment: s/p PEG placement (6) S/P percutaneous endoscopic gastrostomy (PEG) tube placement Code(s): Z93.1 - GASTROSTOMY STATUS Status: Acute (7) Dementia Code(s): F03.90 - UNSPECIFIED DEMENTIA WITHOUT BEHAVIORAL DISTURBANCE Status: Chronic Qualifiers: Dementia type: Alzheimer's disease (8) Macrocytic anemia Code(s): D53.9 - NUTRITIONAL ANEMIA, UNSPECIFIED Status: Chronic (9) Leucocytosis Code(s): D72.829 - ELEVATED WHITE BLOOD CELL COUNT, UNSPECIFIED Status: Acute - Plan cont current plan of care, plan discussed w/ family, continue antibiotics, PT/OT , social media community manager, out of bed/ambulate, DVT proph w/SCDs Cont tube feeds. replace & recheck lytes. -: cont ASA w amiodarone for A-fib which is paroxysmal.appreciate Cardiology -: Inpt rehab on Dc per family request.DC when arranged -: HD stable.cont supportive care.DC IVF -: recheck UA.last urine Cx +ve for rofauehshkff25/02/17 * .check RUE -US.prosper ley d/i IV infiltration but r/o DVT. * no anticoagulation due to high fall risk and bleeding risk Review of Systems - Review of Systems Other: can not be obtained reliably due to dementia - Medications/Allergies Allergies/Adverse Reactions: Allergies Allergy/AdvReac Type Severity Reaction Status Date / Time No Known Drug Allergies Allergy Verified 02/22/17 01:50 Medications: Current Medications Acetaminophen (Tylenol) 650 mg MA Q4H PRN PRN Reason: Headache/Fever or Mild Pain Acetaminophen (Tylenol) 650 mg PER TUBE Q4H PRN PRN Reason: Headache/Fever or Mild Pain Al Hydroxide/Mg Hydroxide (Maalox) 15 ml PER TUBE Q4H PRN PRN Reason: Heartburn or Indigestion Amiodarone HCl (Cordarone) 400 mg PO BID [facility] Last Admin: 03/14/17 10:16 Dose: 400 mg Artificial Tears (Tears Naturale) 0 drop EA EYE PRN PRN PRN Reason: Dry Eyes Aspirin (Aspirin) 325 mg PO DAILY [facility] Last Admin: 03/14/17 10:16 Dose: 325 mg Bisacodyl (Dulcolax) 10 mg MA DAILY PRN PRN Reason: Constipation Cyanocobalamin (Vitamin B-12) 1,000 mcg PER TUBE DAILY [facility] Last Admin: 03/14/17 10:16 Dose: 1,000 mcg Famotidine (Pepcid) 20 mg PER TUBE BID [facility] Last Admin: 03/14/17 10:17 Dose: 20 mg Folic Acid (Folvite) 1 mg PER TUBE DAILY [facility] Last Admin: 03/14/17 10:16 Dose: 1 mg Guaifenesin (Robitussin Sf) 200 mg PER TUBE Q4H PRN PRN Reason: Cough Hydralazine HCl (Apresoline) 10 mg SLOW IVP Q4H PRN PRN Reason: Systolic BP > 180 Cefepime HCl 2 gm/ Syringe 2.5 (ml/ Sterile Water) 12.5 mls @ 150 mls/hr SLOW IVP 1200,2359 [facility] Last Admin: 03/14/17 12:28 Dose: 12.5 mls Potassium Chloride/Dextrose/Sod Cl (D5 1/2 Ns W/40 Meq Kcl) 1,000 mls @ 75 mls/ hr IV .[id number] [facility] Last Admin: 03/14/17 10:17 Dose: 1,000 mls Vancomycin HCl 1 gm/ Device 200 mls @ 200 mls/hr IVPB 1100,2300 [facility] Last Admin: 03/14/17 11:40 Dose: 200 mls Potassium Phosphate 9 mmol/ (Sodium Chloride) 103 mls @ 25 mls/hr IVPB ONE [facility] Iron/Minerals/Multivitamins (Theragran M) 1 tab PER TUBE DAILY [facility] Last Admin: 03/14/17 10:16 Dose: 1 tab Loratadine (Claritin) 10 mg PER TUBE DAILYPRN PRN PRN Reason: Sinus Symptoms Magnesium Hydroxide (Milk Of Magnesium) 30 ml PER TUBE DAILYPRN PRN PRN Reason: Constipation Mineral Oil/White Petrolatum (Eucerin Cream) 0 gm TOP BIDPRN PRN PRN Reason: Dry Skin Miscellaneous Medication (Pharmacy To Dose) 1 each IVPB PRN PRN PRN Reason: PHARMACY TO DOSE Ondansetron HCl (Zofran) 4 mg IVP Q6H PRN PRN Reason: Nausea/Vomiting Ondansetron HCl (Zofran Odt) 4 mg PER TUBE Q6H PRN PRN Reason: Nausea/Vomiting Sodium Chloride (Flush - Normal Saline) 10 ml IVF Q12HR [facility] Last Admin: 03/14/17 10:17 Dose: Not Given Sodium Chloride (Flush - Normal Saline) 10 ml IVF PRN PRN PRN Reason: Saline Flush Last Admin: 03/13/17 13:53 Dose: 10 ml Sodium Chloride ([place] Nasal [place] 0.65%) 0 ml EA NARE QIDPRN PRN PRN Reason: Nasal Congestion
--- NOTE | 2017-03-14 14:34 | PRG ---
DATE OF SERVICE: 03/14/2017 SUBJECTIVE: Mr. Roy continues to tolerate his tube feeds okay. His family is not in the room to day. Pathology on the distal esophageal biopsies came back benign. PHYSICAL EXAMINATION: VITAL SIGNS: Temperature 97.9, pulse 66, blood pressure 138/72, 98% oxygen saturation on room air. GENERAL: No acute distress. HEART: Regular rate and rhythm. LUNGS: Clear to auscultation bilaterally. ABDOMEN: PEG site looks good, soft and nontender to palpation. EXTREMITIES: No peripheral edema. LABORATORY STUDIES: Distal esophageal biopsies showing Koehler specialized columnar epithelium on a background of active esophagitis consistent with reflux, but negative for dysplasia or malignancy. ASSESSMENT AND PLAN: 1. Oropharyngeal dysphagia, status post successful percutaneous endoscopic gastrostomy tube placeme nt on 03/11/2017. 2. Severe distal esophagitis. 4. Koehler's esophagus, distal esophagus. Reviewed the pathology results on the distal esophageal biopsies. There is no evidence of any dyspl gavin or malignancy. This just represents severe ulcerative esophagitis on a background of Koehler's esophagus. This is good news. No endoscopic surveillance plan given the patient's age and comorbi dities. He should remain on a proton pump inhibitor. Keep the head of the bed elevated. GI will sign off, but please call back with questions or concerns.
[2017-03-14] MEDS ORDERED: Potassium Phosphate 9 MMOL in Sodium Chloride 0.9% 100 ML IVPB SCH (15:00)
[2017-03-14 19:30] LABS: Bilirubin Negative (Negative); Blood, Urine Negative (Negative); Glucose, Urine (Dipstick) Negative (Negative); Ketone, Urine Negative (Negative); Nitrite Negative (Negative); Protein, Urine (Dipstick) Negative (Neg-Trace)
[2017-03-15] MEDS: Vancomycin HCl 1 GM in Premix Bag 1 BAG IVPB SCH (00:30)
[2017-03-15] MEDS: Cefepime 2 GM, Syringe 2.5 ML in Sterile Water 10 ML SLOW IVP SCH ×2 (01:55→12:05)
[2017-03-15 05:31] LABS: #Eosinphils 0.6 thou/uL (0.0-0.7); #Lymphocytes 0.9 thou/uL (1.20-3.40); #Monocytes 0.9 thou/uL (0.11-0.59); #Neutrophils 9.8 thou/uL (1.40-6.50); %Basophils 0.1 % (0.0-1.0); %Eosinophils 4.8 % (0.0-10.0); %Lymphocytes 7.7 % (21.0-51.0); %Monocytes 7.5 % (0.0-10.0); Hematocrit 33.3 % (42.0-52.0); Mean Platelet Volume 7.6 fL (7.4-10.4); White Blood Cell (WBC) Count 12.2 thou/uL (4.8-10.8)
[2017-03-15 05:49] LABS: Anion Gap 11 mmol/L (10-20); BUN (Urea Nitrogen) 12 mg/dL (8.4-25.7); Calc. Creatinine Clearance 77 mL/min (70-130); Calcium 7.6 mg/dL (7.8-10.44); Carbon Dioxide 23 mmol/L (23-31); Chloride 104 mmol/L (98-107); Estimated GFR-MDRD Greater than 90; Magnesium 2.2 mg/dL (1.6-2.6)
[2017-03-15 05:51] LABS: Phosphorus 1.9 mg/dL (2.3-4.7)
[2017-03-15] MEDS ORDERED: Pantoprazole 40 MG GRANULES PACKET PER TUBE SCH (09:30)
[2017-03-15] MEDS: Multivitamin W/ Minerals 1 TAB PER TUBE SCH (09:34)
[2017-03-15] MEDS: Famotidine 20 MG TAB PER TUBE SCH ×2 (09:34→21:59)
[2017-03-15] MEDS: Cyanocobalamin (Vitamin B-12) 1,000 MCG TAB PER TUBE SCH (09:34)
[2017-03-15] MEDS: Folic Acid 1 MG TAB PER TUBE SCH (09:34)
[2017-03-15] MEDS: Aspirin 325 MG TAB PO SCH (09:34)
--- NOTE | 2017-03-15 11:46 | PDOC.PN ---
- Subjective Encounter Start Date: 03/15/17 Encounter Start Time: 11:45 Subjective: at bedside.discussed care. -: pt sleepy and wakes up and reports that he feels Ok -: reports right arm still swollen - Objective Resuscitation Status: Resuscitation Status DNR:Do Not Resuscitate MAR Reviewed: Yes Vital Signs & Weight: Vital Signs (12 hours) Temp Pulse Resp BP Pulse Ox 03/15/17 09:31 98.3 F 68 22 H 152/67 H 100 03/15/17 04:00 98.4 F 67 16 141/62 H 100 Weight Admit Weight 116 lb 11.2 oz Weight 131 lb I&O: 03/14/17 03/15/17 03/16/17 06:59 06:59 06:59 Intake Total 1833 3256 Balance 1833 3256 Result Diagrams: 03/15/17 04:35 03/15/17 04:35 Additional Labs: Microbiology 03/08/17 05:50 Urine clean catch Urine Culture - Final Enterococcus species Phys Exam - Physical Examination Constitutional: NAD somnolent but easily woken up.minimally conversant HEENT: PERRLA, moist MMs, sclera anicteric, oral pharynx no lesions Neck: no nodes, no JVD, supple, full ROM Respiratory: no wheezing, no rales, clear to auscultation bilateral decreased at bases Cardiovascular: RRR, no significant murmur Gastrointestinal: soft, non-tender, no distention, positive bowel sounds PEG in place Musculoskeletal: pulses present, edema present (R forearm) Psychiatric: normal affect Skin: no rash Dx/Plan (1) Aspiration pneumonia Code(s): J69.0 - PNEUMONITIS DUE TO INHALATION OF FOOD AND VOMIT Status: Acute Comment: on iv Abx (2) Atrial fibrillation with RVR Code(s): I48.91 - UNSPECIFIED ATRIAL FIBRILLATION Status: Acute Comment: NSR now. On Amiodarone and ASA (3) Hypernatremia Code(s): E87.0 - HYPEROSMOLALITY AND HYPERNATREMIA Status: Resolved (4) Hypokalemia Code(s): E87.6 - HYPOKALEMIA Status: Resolved (5) Oropharyngeal dysphagia Code(s): R13.12 - DYSPHAGIA, OROPHARYNGEAL PHASE Status: Acute Comment: s/p PEG placement (6) S/P percutaneous endoscopic gastrostomy (PEG) tube placement Code(s): Z93.1 - GASTROSTOMY STATUS Status: Acute (7) Dementia Code(s): F03.90 - UNSPECIFIED DEMENTIA WITHOUT BEHAVIORAL DISTURBANCE Status: Chronic Qualifiers: Dementia type: Alzheimer's disease (8) Macrocytic anemia Code(s): D53.9 - NUTRITIONAL ANEMIA, UNSPECIFIED Status: Chronic (9) Leucocytosis Code(s): D72.829 - ELEVATED WHITE BLOOD CELL COUNT, UNSPECIFIED Status: Acute Comment: improving - Plan plan discussed w/ family, continue antibiotics, PT/OT, vp digital marketing social media and crm, respiratory therapy, incentive spirometry, DVT proph w/SCDs ADD PPI per GI recs-esophagitis on EGD.Cont TF w aspiration precautions -: some Hip jarrell removed today.Rest to be removed tomorrow. -: cont ASA,amiodarone..NSR now. -: DC vancomycin as no clear indication.cont cefepime for asp.PNA -: Rehab eval in process.pt may need to stay for ortho intervention as above * . Review of Systems - Review of Systems Constitutional: Weakness Respiratory: negative: Cough, Dry, Shortness of Breath, Hemoptysis, SOB with Excertion, Pleuritic Pain, Sputum, Wheezing Cardiovascular: negative: Chest Pain, Palpitations, Orthopnea, Paroxysmal Noc. Dyspnea, Edema, Light Headedness, Other Gastrointestinal: negative: Nausea, Vomiting, Abdominal Pain, Diarrhea, Constipation, Melena, Hematochezia, Other Genitourinary: negative: Dysuria, Frequency, Incontinence, Hematuria, Retention , Other Musculoskeletal: Arm Pain Neurological: negative: Weakness, Numbness, Incoordination, Change in Speech, Confusion, Seizures, Other - Medications/Allergies Allergies/Adverse Reactions: Allergies Allergy/AdvReac Type Severity Reaction Status Date / Time No Known Drug Allergies Allergy Verified 02/22/17 01:50 Medications: Current Medications Acetaminophen (Tylenol) 650 mg [place] Q4H PRN PRN Reason: Headache/Fever or Mild Pain Acetaminophen (Tylenol) 650 mg PER TUBE Q4H PRN PRN Reason: Headache/Fever or Mild Pain Al Hydroxide/Mg Hydroxide (Maalox) 15 ml PER TUBE Q4H PRN PRN Reason: Heartburn or Indigestion Amiodarone HCl (Cordarone) 400 mg PO BID [facility] Last Admin: 03/15/17 09:34 Dose: 400 mg Artificial Tears (Tears Naturale) 0 drop EA EYE PRN PRN PRN Reason: Dry Eyes Aspirin (Aspirin) 325 mg PO DAILY [facility] Last Admin: 03/15/17 09:34 Dose: 325 mg Bisacodyl (Dulcolax) 10 mg CA DAILY PRN PRN Reason: Constipation Cyanocobalamin (Vitamin B-12) 1,000 mcg PER TUBE DAILY [facility] Last Admin: 03/15/17 09:34 Dose: 1,000 mcg Famotidine (Pepcid) 20 mg PER TUBE BID [facility] Last Admin: 03/15/17 09:34 Dose: 20 mg Folic Acid (Folvite) 1 mg PER TUBE DAILY [facility] Last Admin: 03/15/17 09:34 Dose: 1 mg Guaifenesin (Robitussin Sf) 200 mg PER TUBE Q4H PRN PRN Reason: Cough Hydralazine HCl (Apresoline) 10 mg SLOW IVP Q4H PRN PRN Reason: Systolic BP > 180 Cefepime HCl 2 gm/ Syringe 2.5 (ml/ Sterile Water) 12.5 mls @ 150 mls/hr SLOW IVP 1200,2359 [facility] Last Admin: 03/15/17 01:55 Dose: 12.5 mls Iron/Minerals/Multivitamins (Theragran M) 1 tab PER TUBE DAILY [facility] Last Admin: 03/15/17 09:34 Dose: 1 tab Loratadine (Claritin) 10 mg PER TUBE DAILYPRN PRN PRN Reason: Sinus Symptoms Magnesium Hydroxide (Milk Of Magnesium) 30 ml PER TUBE DAILYPRN PRN PRN Reason: Constipation Mineral Oil/White Petrolatum (Eucerin Cream) 0 gm TOP BIDPRN PRN PRN Reason: Dry Skin Miscellaneous Medication (Pharmacy To Dose) 1 each IVPB PRN PRN PRN Reason: PHARMACY TO DOSE Ondansetron HCl (Zofran) 4 mg IVP Q6H PRN PRN Reason: Nausea/Vomiting Ondansetron HCl (Zofran Odt) 4 mg PER TUBE Q6H PRN PRN Reason: Nausea/Vomiting Pantoprazole Sodium (Protonix) 40 mg PER TUBE DAILY [facility] Sodium Chloride (Flush - Normal Saline) 10 ml IVF Q12HR [facility] Last Admin: 03/15/17 09:35 Dose: 10 ml Sodium Chloride (Flush - Normal Saline) 10 ml IVF PRN PRN PRN Reason: Saline Flush Last Admin: 03/13/17 13:53 Dose: 10 ml Sodium Chloride ([place] Nasal [place] 0.65%) 0 ml EA NARE QIDPRN PRN PRN Reason: Nasal Congestion
--- NOTE | 2017-03-15 12:52 | PDOC.CTH ---
Cardiology Progress Note - Subjective The pt was seen and examined. No overnight events. No cardiac complaints. He is more alerted today and answered and followed some commands. - Objective Vital Signs Temp Pulse Resp BP Pulse Ox 03/15/17 09:31 98.3 F 68 22 H 152/67 H 100 03/15/17 08:00 98.3 F 68 22 H 100 03/15/17 04:00 98.4 F 67 16 141/62 H 100 Admit Weight 116 lb 11.2 oz Weight 131 lb 03/14/17 03/15/17 03/16/17 06:59 06:59 06:59 Intake Total 1833 3256 30 Balance 1833 3256 30 - Physical Examination General/Neuro: other: (disoriented to place and situation) Lungs: other: (coase and diminished at bases) Heart: RRR Abdomen: soft Extremities: other: (No edema) - Telemetry Telemetry Rhythm: SR 69 w/ PACs - Labs Result Diagrams: 03/15/17 04:35 03/15/17 04:35 - Assessment/Plan 1. Afib with RVR - Remain in SR with HR since 03/11/17; HR well controlled with current medication, ASA and Amiodarone 400mg BID; cont. monitor on tele; Cont. Amiodarone 400mg BID for 1wk then decrease to 200mg BID 2. S/P PEG tube placement on 03/11/17 - The pt has been tolerating TF; managed by GI and PCP 3. Aspiration pneumonia - on IV Antibiotics 4. dysphagia - NPO 5. Dementia - able to follow some commands today; family at bedside MAR reviewed Review of Systems - Review of Systems Constitutional: reports: no symptoms reported, see HPI EENTM: reports: no symptoms reported, see HPI Respiratory: reports: no symptoms reported, see HPI Cardiac (ROS): reports: see HPI ABD/GI: reports: see HPI : reports: see HPI Musculoskeletal: reports: see HPI Skin: reports: see HPI Neurological: reports: see HPI
--- NOTE | 2017-03-15 16:40 | ULT ---
EXAM: RIGHT UPPER EXTREMITY VENOUS ULTRASOUND WITH DOPPLER: History Right upper extremity swelling and pain. COMPARISON: None. TECHNIQUE: [place] scale, color flow, Doppler imaging, and spectral waveform analysis was performed of the right u pper extremity venous system. FINDINGS: The right internal jugular vein is patent. There is flow. The right subclavian and axillary vein are patent and have flow. There is lack of compressibility involving the entire cephalic vein which is clotted. There is lack of flow and lack of compressibility in the radial veins. In the upper arm the basilic vein has occ lusive and partial occlusive thrombus. Brachial vein is patent and has compressibility and flow. U lnar vein is patent and has flow. IMPRESSION: Right upper extremity thrombosis involving the cephalic vein, basilic vein, and radial vein as detai led above. CODE T POS: VICK
[2017-03-16] MEDS: Cefepime 2 GM, Syringe 2.5 ML in Sterile Water 10 ML SLOW IVP SCH ×2 (01:58→11:37)
[2017-03-16] MEDS: Folic Acid 1 MG TAB PER TUBE SCH (08:43)
[2017-03-16] MEDS: Cyanocobalamin (Vitamin B-12) 1,000 MCG TAB PER TUBE SCH (08:44)
[2017-03-16] MEDS: Multivitamin W/ Minerals 1 TAB PER TUBE SCH (08:44)
[2017-03-16] MEDS: Aspirin 325 MG TAB PO SCH (08:44)
[2017-03-16] MEDS: Famotidine 20 MG TAB PER TUBE SCH ×2 (08:44→21:13)
[2017-03-16] MEDS: Pantoprazole 40 MG GRANULES PACKET PER TUBE SCH (08:44)
--- NOTE | 2017-03-16 08:59 | PDOC.CTH ---
<Marguerite Acosta - Last Filed: 03/16/17 08:57> Cardiology Progress Note - Subjective The pt was seen and examined. No overnight events. He is alerted to self but no situation or place. His at bedside - Objective Vital Signs Temp Pulse Resp BP Pulse Ox 03/16/17 08:41 98.1 F 70 22 H 131/63 100 03/16/17 04:00 97.9 F 66 20 134/63 100 03/15/17 21:55 72 169/73 H Admit Weight 116 lb 11.2 oz Weight 130 lb 8 oz 03/15/17 03/16/17 03/17/17 06:59 06:59 06:59 Intake Total 3256 889 Balance 3256 889 - Physical Examination General/Neuro: other: (confused) Neck: no JVD present Lungs: other: (coases) Heart: RRR Abdomen: soft Extremities: other: (No edema; swelling around his Rt elbow) - Telemetry Telemetry Rhythm: SR 70s - Labs Result Diagrams: 03/15/17 04:35 03/15/17 04:35 - Assessment/Plan 1. Afib with RVR - Remain in SR with HR since 03/11/17; HR well controlled with current medication, ASA and Amiodarone 400mg BID; cont. monitor on tele; Cont. Amiodarone 400mg BID for 1wk then decrease to 200mg BID 2. S/P PEG tube placement on 03/11/17 - The pt has been tolerating TF with Protonix; managed by GI and PCP 3. Aspiration pneumonia - on IV Antibiotics; managed by PCP 4. dysphagia - NPO 5. Dementia - able to follow some commands today; family at bedside 6. superficial DVT in Rt Arm - possible from IV; cont. ASA and warm compress at the site; cont. monitor MAR reviewed <Cooper Rubio - Last Filed: 03/16/17 18:04> Cardiology Progress Note - Objective Vital Signs Temp Pulse Resp BP Pulse Ox 03/16/17 17:01 98.0 F 78 20 133/75 96 03/16/17 11:35 97.0 F L 60 22 H 122/59 L 100 03/16/17 08:41 98.1 F 70 22 H 131/63 100 03/16/17 08:00 98.1 F 70 22 H 100 Admit Weight 116 lb 11.2 oz Weight 130 lb 8 oz 03/15/17 03/16/17 03/17/17 06:59 06:59 06:59 Intake Total 3256 889 1613 Balance 3256 889 1613 - Labs Result Diagrams: 03/15/17 04:35 03/15/17 04:35 - Assessment/Plan Pt. seen and evaluated. I agree with the A/P by the GRAPHICS ARTIST. No change in cardiac status. He remains in NSR. Chest: bilat. rhonchi. CV: RRR
--- NOTE | 2017-03-16 14:56 | PDOC.PN ---
- Subjective Encounter Start Date: 03/16/17 Encounter Start Time: 14:55 Subjective: at bedside.reports incontinenece but no acute issues -: Pt himself is largely non verbal due to dementia - Objective Resuscitation Status: Resuscitation Status DNR:Do Not Resuscitate MAR Reviewed: Yes Vital Signs & Weight: Vital Signs (12 hours) Temp Pulse Resp BP Pulse Ox 03/16/17 11:35 97.0 F L 60 22 H 122/59 L 100 03/16/17 08:41 98.1 F 70 22 H 131/63 100 03/16/17 08:00 98.1 F 70 22 H 100 03/16/17 04:00 97.9 F 66 20 134/63 100 Weight Admit Weight 116 lb 11.2 oz Weight 130 lb 8 oz I&O: 03/15/17 03/16/17 03/17/17 06:59 06:59 06:59 Intake Total 3256 889 870 Balance 3256 889 870 Result Diagrams: 03/15/17 04:35 03/15/17 04:35 Additional Labs: Microbiology 03/14/17 18:56 Urine voided Urine Culture - Final Yeast species Radiology Reviewed by me: Yes (Doppler Right arm-DVT basilic & brachiocephalic veins) Phys Exam - Physical Examination Constitutional: NAD awake and fidgety HEENT: PERRLA, moist MMs, sclera anicteric, oral pharynx no lesions Neck: no nodes, no JVD, supple, full ROM Respiratory: no wheezing, no rales, no rhonchi, clear to auscultation bilateral Cardiovascular: RRR, no significant murmur Gastrointestinal: soft, non-tender, no distention, positive bowel sounds Musculoskeletal: no edema, pulses present Neurological: moves all 4 limbs Deviation from normal: agitated Dx/Plan (1) Aspiration pneumonia Code(s): J69.0 - PNEUMONITIS DUE TO INHALATION OF FOOD AND VOMIT Status: Acute Comment: on iv Abx (2) Atrial fibrillation with RVR Code(s): I48.91 - UNSPECIFIED ATRIAL FIBRILLATION Status: Acute Comment: NSR now. On Amiodarone and ASA (3) Hypernatremia Code(s): E87.0 - HYPEROSMOLALITY AND HYPERNATREMIA Status: Resolved (4) Hypokalemia Code(s): E87.6 - HYPOKALEMIA Status: Resolved (5) Oropharyngeal dysphagia Code(s): R13.12 - DYSPHAGIA, OROPHARYNGEAL PHASE Status: Acute Comment: s/p PEG placement (6) S/P percutaneous endoscopic gastrostomy (PEG) tube placement Code(s): Z93.1 - GASTROSTOMY STATUS Status: Acute (7) Dementia Code(s): F03.90 - UNSPECIFIED DEMENTIA WITHOUT BEHAVIORAL DISTURBANCE Status: Chronic Qualifiers: Dementia type: Alzheimer's disease (8) Macrocytic anemia Code(s): D53.9 - NUTRITIONAL ANEMIA, UNSPECIFIED Status: Chronic (9) Leucocytosis Code(s): D72.829 - ELEVATED WHITE BLOOD CELL COUNT, UNSPECIFIED Status: Acute Comment: improving (10) DVT of upper extremity (deep vein thrombosis) Code(s): I82.629 - ACUTE EMBOLISM AND THROMBOSIS OF DEEP VN UNSP UP EXTREM Status: Acute Qualifiers: Chronicity: acute Laterality: right - Plan plan discussed w/ family, DVT proph w/SCDs Will treat superficial DVT conservatively.discussed w -: Poor candidate for anticoagulation. -: Change ABx to Po on DC.hemodynamically stable. -: tolerating tube feeds. -: DC to rehab when accpeted * . Review of Systems - Review of Systems Other: unobtainable due to dementia. does not answer Qs or follow commads - Medications/Allergies Allergies/Adverse Reactions: Allergies Allergy/AdvReac Type Severity Reaction Status Date / Time No Known Drug Allergies Allergy Verified 02/22/17 01:50 Medications: Current Medications Acetaminophen (Tylenol) 650 mg [place] Q4H PRN PRN Reason: Headache/Fever or Mild Pain Acetaminophen (Tylenol) 650 mg PER TUBE Q4H PRN PRN Reason: Headache/Fever or Mild Pain Al Hydroxide/Mg Hydroxide (Maalox) 15 ml PER TUBE Q4H PRN PRN Reason: Heartburn or Indigestion Amiodarone HCl (Cordarone) 400 mg PO BID COUNTS INCLUDE 234 BEDS AT THE [facility] Last Admin: 03/16/17 08:44 Dose: 400 mg Artificial Tears (Tears Naturale) 0 drop EA EYE PRN PRN PRN Reason: Dry Eyes Aspirin (Aspirin) 325 mg PO DAILY COUNTS INCLUDE 234 BEDS AT THE [facility] Last Admin: 03/16/17 08:44 Dose: 325 mg Bisacodyl (Dulcolax) 10 mg [place] DAILY PRN PRN Reason: Constipation Cyanocobalamin (Vitamin B-12) 1,000 mcg PER TUBE DAILY COUNTS INCLUDE 234 BEDS AT THE [facility] Last Admin: 03/16/17 08:44 Dose: 1,000 mcg Famotidine (Pepcid) 20 mg PER TUBE BID COUNTS INCLUDE 234 BEDS AT THE [facility] Last Admin: 03/16/17 08:44 Dose: 20 mg Folic Acid (Folvite) 1 mg PER TUBE DAILY COUNTS INCLUDE 234 BEDS AT THE [facility] Last Admin: 03/16/17 08:43 Dose: 1 mg Guaifenesin (Robitussin Sf) 200 mg PER TUBE Q4H PRN PRN Reason: Cough Hydralazine HCl (Apresoline) 10 mg SLOW IVP Q4H PRN PRN Reason: Systolic BP > 180 Cefepime HCl 2 gm/ Syringe 2.5 (ml/ Sterile Water) 12.5 mls @ 150 mls/hr SLOW IVP 1200,2359 COUNTS INCLUDE 234 BEDS AT THE [facility] Last Admin: 03/16/17 11:37 Dose: 12.5 mls Iron/Minerals/Multivitamins (Theragran M) 1 tab PER TUBE DAILY COUNTS INCLUDE 234 BEDS AT THE [facility] Last Admin: 03/16/17 08:44 Dose: 1 tab Loratadine (Claritin) 10 mg PER TUBE DAILYPRN PRN PRN Reason: Sinus Symptoms Magnesium Hydroxide (Milk Of Magnesium) 30 ml PER TUBE DAILYPRN PRN PRN Reason: Constipation Mineral Oil/White Petrolatum (Eucerin Cream) 0 gm TOP BIDPRN PRN PRN Reason: Dry Skin Ondansetron HCl (Zofran) 4 mg IVP Q6H PRN PRN Reason: Nausea/Vomiting Ondansetron HCl (Zofran Odt) 4 mg PER TUBE Q6H PRN PRN Reason: Nausea/Vomiting Pantoprazole Sodium (Protonix) 40 mg PER TUBE DAILY COUNTS INCLUDE 234 BEDS AT THE [facility] Last Admin: 03/16/17 08:44 Dose: 40 mg Sodium Chloride (Flush - Normal Saline) 10 ml IVF Q12HR COUNTS INCLUDE 234 BEDS AT THE [facility] Last Admin: 03/16/17 08:44 Dose: 10 ml Sodium Chloride (Flush - Normal Saline) 10 ml IVF PRN PRN PRN Reason: Saline Flush Last Admin: 03/13/17 13:53 Dose: 10 ml Sodium Chloride ([place] Nasal [place] 0.65%) 0 ml EA NARE QIDPRN PRN PRN Reason: Nasal Congestion
[2017-03-17] MEDS: Cefepime 2 GM, Syringe 2.5 ML in Sterile Water 10 ML SLOW IVP SCH ×2 (00:09→12:59)
[2017-03-17] MEDS: Pantoprazole 40 MG GRANULES PACKET PER TUBE SCH (09:18)
[2017-03-17] MEDS: Multivitamin W/ Minerals 1 TAB PER TUBE SCH (09:18)
[2017-03-17] MEDS: Cyanocobalamin (Vitamin B-12) 1,000 MCG TAB PER TUBE SCH (09:18)
[2017-03-17] MEDS: Aspirin 325 MG TAB PO SCH (09:18)
[2017-03-17] MEDS: Folic Acid 1 MG TAB PER TUBE SCH (09:18)
[2017-03-17] MEDS: Famotidine 20 MG TAB PER TUBE SCH (09:19)
[2017-03-17 11:28] VITALS: TEMP 97.7
--- NOTE | 2017-03-17 12:09 | PDOC.PN ---
- Subjective Encounter Start Date: 03/17/17 Encounter Start Time: 12:08 Subjective: no new complaints. ta bedisde and report no new issues -: tolerating TF. Right arm free of pain/swelling now - Objective Resuscitation Status: Resuscitation Status DNR:Do Not Resuscitate MAR Reviewed: Yes Vital Signs & Weight: Vital Signs (12 hours) Temp Pulse Resp BP Pulse Ox 03/17/17 11:24 97.7 F 60 18 123/58 L 100 03/17/17 07:52 96.8 F L 67 20 99 03/17/17 07:25 96.8 F L 67 20 141/63 H 99 03/17/17 04:16 98.4 F 65 18 134/60 98 Weight Admit Weight 116 lb 11.2 oz Weight 127 lb I&O: 03/16/17 03/17/17 03/18/17 06:59 06:59 06:59 Intake Total 889 2333 Balance 889 2333 Result Diagrams: 03/15/17 04:35 03/15/17 04:35 Additional Labs: Microbiology 03/14/17 18:56 Urine voided Urine Culture - Final Yeast species Phys Exam - Physical Examination Constitutional: NAD wakes up w verbal stimuli HEENT: PERRLA, moist MMs, sclera anicteric, oral pharynx no lesions Neck: no nodes, no JVD, supple, full ROM Respiratory: no wheezing, no rales, no rhonchi, clear to auscultation bilateral Cardiovascular: RRR, no significant murmur Gastrointestinal: soft, non-tender, no distention, positive bowel sounds PEG in place Musculoskeletal: no edema, pulses present Neurological: non-focal, normal sensation, moves all 4 limbs Psychiatric: normal affect Skin: no rash Dx/Plan (1) Aspiration pneumonia Code(s): J69.0 - PNEUMONITIS DUE TO INHALATION OF FOOD AND VOMIT Status: Acute Comment: on iv Abx (2) Atrial fibrillation with RVR Code(s): I48.91 - UNSPECIFIED ATRIAL FIBRILLATION Status: Acute Comment: NSR now. On Amiodarone and ASA (3) Hypernatremia Code(s): E87.0 - HYPEROSMOLALITY AND HYPERNATREMIA Status: Resolved (4) Hypokalemia Code(s): E87.6 - HYPOKALEMIA Status: Resolved (5) Oropharyngeal dysphagia Code(s): R13.12 - DYSPHAGIA, OROPHARYNGEAL PHASE Status: Acute Comment: s/p PEG placement (6) S/P percutaneous endoscopic gastrostomy (PEG) tube placement Code(s): Z93.1 - GASTROSTOMY STATUS Status: Acute (7) Dementia Code(s): F03.90 - UNSPECIFIED DEMENTIA WITHOUT BEHAVIORAL DISTURBANCE Status: Chronic Qualifiers: Dementia type: Alzheimer's disease (8) Macrocytic anemia Code(s): D53.9 - NUTRITIONAL ANEMIA, UNSPECIFIED Status: Chronic (9) Leucocytosis Code(s): D72.829 - ELEVATED WHITE BLOOD CELL COUNT, UNSPECIFIED Status: Acute Comment: improving (10) DVT of upper extremity (deep vein thrombosis) Code(s): I82.629 - ACUTE EMBOLISM AND THROMBOSIS OF DEEP VN UNSP UP EXTREM Status: Acute Qualifiers: Chronicity: acute Laterality: right - Plan continue antibiotics, out of bed/ambulate, DVT proph w/SCDs OK to DC anytime form IM stand point.awaiting placement. -: cont IV ABx till DC ,then stop. -: cont TF. -: cont Amiodarone and ASA .cardiology f/u as an OP. -: hemodynamically stable. * . Review of Systems - Review of Systems Other: does not answer Qs appropriately and says Yes to all . - Medications/Allergies Allergies/Adverse Reactions: Allergies Allergy/AdvReac Type Severity Reaction Status Date / Time No Known Drug Allergies Allergy Verified 02/22/17 01:50 Medications: Current Medications Acetaminophen (Tylenol) 650 mg [place] Q4H PRN PRN Reason: Headache/Fever or Mild Pain Acetaminophen (Tylenol) 650 mg PER TUBE Q4H PRN PRN Reason: Headache/Fever or Mild Pain Al Hydroxide/Mg Hydroxide (Maalox) 15 ml PER TUBE Q4H PRN PRN Reason: Heartburn or Indigestion Amiodarone HCl (Cordarone) 400 mg PO BID [facility] Last Admin: 03/17/17 09:19 Dose: 400 mg Artificial Tears (Tears Naturale) 0 drop EA EYE PRN PRN PRN Reason: Dry Eyes Aspirin (Aspirin) 325 mg PO DAILY [facility] Last Admin: 03/17/17 09:18 Dose: 325 mg Bisacodyl (Dulcolax) 10 mg AR DAILY PRN PRN Reason: Constipation Cyanocobalamin (Vitamin B-12) 1,000 mcg PER TUBE DAILY [facility] Last Admin: 03/17/17 09:18 Dose: 1,000 mcg Famotidine (Pepcid) 20 mg PER TUBE BID [facility] Last Admin: 03/17/17 09:19 Dose: 20 mg Folic Acid (Folvite) 1 mg PER TUBE DAILY [facility] Last Admin: 03/17/17 09:18 Dose: 1 mg Guaifenesin (Robitussin Sf) 200 mg PER TUBE Q4H PRN PRN Reason: Cough Hydralazine HCl (Apresoline) 10 mg SLOW IVP Q4H PRN PRN Reason: Systolic BP > 180 Cefepime HCl 2 gm/ Syringe 2.5 (ml/ Sterile Water) 12.5 mls @ 150 mls/hr SLOW IVP 1200,2359 [facility] Last Admin: 03/17/17 00:09 Dose: 12.5 mls Iron/Minerals/Multivitamins (Theragran M) 1 tab PER TUBE DAILY [facility] Last Admin: 03/17/17 09:18 Dose: 1 tab Loratadine (Claritin) 10 mg PER TUBE DAILYPRN PRN PRN Reason: Sinus Symptoms Magnesium Hydroxide (Milk Of Magnesium) 30 ml PER TUBE DAILYPRN PRN PRN Reason: Constipation Mineral Oil/White Petrolatum (Eucerin Cream) 0 gm TOP BIDPRN PRN PRN Reason: Dry Skin Ondansetron HCl (Zofran) 4 mg IVP Q6H PRN PRN Reason: Nausea/Vomiting Ondansetron HCl (Zofran Odt) 4 mg PER TUBE Q6H PRN PRN Reason: Nausea/Vomiting Pantoprazole Sodium (Protonix) 40 mg PER TUBE DAILY [facility] Last Admin: 03/17/17 09:18 Dose: 40 mg Sodium Chloride (Flush - Normal Saline) 10 ml IVF Q12HR [facility] Last Admin: 03/17/17 09:19 Dose: 10 ml Sodium Chloride (Flush - Normal Saline) 10 ml IVF PRN PRN PRN Reason: Saline Flush Last Admin: 03/13/17 13:53 Dose: 10 ml Sodium Chloride ([place] Nasal [place] 0.65%) 0 ml EA NARE QIDPRN PRN PRN Reason: Nasal Congestion
--- NOTE | 2017-03-17 12:23 | PDOC.CTH ---
<Marguerite Acosta - Last Filed: 03/17/17 12:21> Cardiology Progress Note - Subjective The pt was seen and examined. No overnight events. No cardiac complaints. Getting up from Bed with PTs; however, unstable balance with walker. - Objective Vital Signs Temp Pulse Resp BP Pulse Ox 03/17/17 11:24 97.7 F 60 18 123/58 L 100 03/17/17 07:52 96.8 F L 67 20 99 03/17/17 07:25 96.8 F L 67 20 141/63 H 99 03/17/17 04:16 98.4 F 65 18 134/60 98 Admit Weight 116 lb 11.2 oz Weight 127 lb 03/16/17 03/17/17 03/18/17 06:59 06:59 06:59 Intake Total 889 2333 Balance 889 2333 - Physical Examination General/Neuro: other: (confused) Neck: no JVD present Lungs: other: (coarse and diminished at bases) Heart: RRR Abdomen: soft Extremities: other: (No edemas) - Labs Result Diagrams: 03/15/17 04:35 03/15/17 04:35 - Assessment/Plan 1. Afib with RVR - Remain in SR with HR since 03/11/17; HR well controlled with current medication, ASA and Amiodarone 400mg BID; cont. monitor on tele; Cont. Amiodarone 400mg BID for 1wk then decrease to 200mg BID 2. S/P PEG tube placement on 03/11/17 - The pt has been tolerating TF with Protonix; managed by GI and PCP 3. Aspiration pneumonia - on IV Antibiotics; managed by PCP 4. dysphagia - NPO 5. Dementia - able to follow some commands and getting up from bed with PTs today; family at bedside 6. superficial DVT in Rt Arm - slightly improved from yesterday; possible from IV; cont. ASA and warm compress at the site; cont. monitor MAR reviewed Review of Systems - Review of Systems Constitutional: reports: see HPI EENTM: reports: see HPI Respiratory: reports: no symptoms reported Cardiac (ROS): reports: no symptoms reported ABD/GI: reports: no symptoms reported : reports: no symptoms reported Musculoskeletal: reports: no symptoms reported <Cooper Rubio - Last Filed: 03/17/17 16:27> Cardiology Progress Note - Objective Vital Signs Temp Pulse Pulse Pulse Resp BP BP 03/17/17 16:00 83 18 03/17/17 11:45 68 63 128/59 L 134/64 03/17/17 11:24 97.7 F 60 18 03/17/17 07:52 96.8 F L 67 20 03/17/17 07:25 96.8 F L 67 20 BP Pulse Ox 03/17/17 16:00 135/61 99 03/17/17 11:45 03/17/17 11:24 123/58 L 100 03/17/17 07:52 99 03/17/17 07:25 141/63 H 99 Admit Weight 116 lb 11.2 oz Weight 127 lb 03/16/17 03/17/17 03/18/17 06:59 06:59 06:59 Intake Total 889 2333 Balance 889 2333 - Labs Result Diagrams: 03/15/17 04:35 03/15/17 04:35 - Assessment/Plan Pt. seen and eval. I agree with the A/P by the TUB CHUCKER. Pt. to go to swing bed unit in [place]. Chest cleare today. RRR.
--- NOTE | 2017-03-17 13:47 | PQF ---
CLINICAL DOCUMENTATION IMPROVEMENT CLARIFICATION FORM: ICD-10 Updated PLEASE DO AN ADDENDUM TO THE PROGRESS NOTE WITH ANY DOCUMENTATION UPDATES OR ADDITIONS AND CARRY THROUGH TO DC SUMMARY. THANK YOU. Date: 03/17/17 ATTN: DR. DOTY Please exercise your independent, professional judgment in responding to the clarification form. Clinical indicators are provided on the bottom of this form for your review Please check appropriate box(s): [ ] Protein Calorie Malnutrition: [ ] Mild [ X ] Moderate [ ] Severe [ ] Other Malnutrition (please specify) __ [ ] Underweight without malnutrition [ ] Cachexia [ ] Other diagnosis [ ] Unable to determine In addition, please specify: Present on Admission (POA): [ X ] Yes [ ] No [ ] Unable to determine CLINICAL INDICATORS - SIGNS / SYMPTOMS / LABS DIETARY NOTE: " REPORTS PATIENT HAS HAD ONGOING WEIGHT LOSS X PAST 4-5 MONTHS..." "PROTEIN NEEDS NOT MET" ALBUMIN 1.8 BMI 21.8 RISKS: ASPIRATION RISK H/O DEMENTIA DECONDITIONING POOR WOUND HEALING TREATMENT: DIETARY CONSULTS PEG TUBE PLACEMENT WITH TUBE FEEDS /POTASSIUM SUPPLEMENTATION (This form is maintained as a part of the permanent medical record) 2014 [employer]. All Rights Reserved JAN [email or web address] Office: [phone] [email or web address]
[2017-03-17 14:43] VITALS: BMI 21.8
[2017-03-17 16:25] VITALS: BP 135/61
--- NOTE | 2017-03-17 18:47 | DIS ---
DATE OF ADMISSION: 03/09/2017 DATE OF DISCHARGE: 03/17/2017 PRIMARY CARE PHYSICIAN: Ashwini Tejeda M.D. CONDITION AT THE TIME OF DISCHARGE: Stable and improved. DISCHARGE DISPOSITION: intermediate facility at swing bed at [facility]. DISCHARGE DIAGNOSES: 1. Atrial fibrillation with rapid ventricular response, now rate controlled. The patient is a poor candidate for anticoagulation. 2. Superficial deep venous thrombosis in right upper arm. 3. Moderate protein calorie malnutrition due to poor oral intake, status post PEG tube placement on 03/11/2017. 4. Suspected aspiration pneumonia on IV antibiotic now orally. 5. Alzheimer's dementia. 6. Chronic dysphagia, necessitating the PEG tube placement. CONSULTATIONS IN HOSPITAL: Include, 1. Cardiology, Dr. Torrey Blanchard and Dr. Rubio. 2. Gastroenterology, Dr. Donavan Siddiqi. PROCEDURES DONE IN THE HOSPITAL: Include; 1. Placement of PEG tube by Dr. Siddiqi along with EGD. 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 2. Ultrasound of the right upper extremity, which showed superficial thrombosis in the basilic and cephalic veins. DISCHARGE MEDICATIONS: 1. Artificial tears as needed. 2. Dulcolax 10 mg daily as needed. 3. DuoNebs 3 mL as needed 4. Aspirin 325 mg per tube daily. 5. Vitamin B12 of 1000 mcg daily. 6. Simethicone as needed daily. 7. Multivitamin daily. 8. Folic acid 1 mg per tube daily. 9. Famotidine 20 mg per tube p.o. b.i.d. 10. Amiodarone 400 mg p.o. b.i.d. for 1 week, then 200 mg p.o. b.i.d. for 2 weeks, then 200 mg p.o. daily. 11. Tylenol every 4-6 hours as needed. 12. Augmentin 875 mg p.o. b.i.d. via tube for 5 more days. ADMISSION HISTORY: Mr. Roy is an 86-year-old male with past medical history of recent fall and right hip fracture in 02/2017 as well as atrial fibrillation, dementia and deconditioning, who presented to the emergency room from [facility] for concerns for dysph agia and aspiration. The patient had undergone outside modified barium swallow study, which showed evidence of aspiration and penetration. He was brought into the hospital for necessity of PEG tube placement. Upon presentation, he was hemodynamically stable. He notably had atrial fibrillation wi RVR during his last hospitalization in February. The patient was admitted on telemetry unit and C ardiology was consulted for paroxysmal atrial fibrillation with heart rate in the 80s. Gastroentero logy was consulted for the need for PEG tube placement. There was also question of aspiration pneum onia on the chest x-ray on presentation with bilateral infiltrates. The patient was started on broa d spectrum IV antibiotics. Please see admission history and physical for further details. HOSPITAL COURSE: The patient was seen by Cardiology and they adjusted his medications, so he was ch anged from sotalol that he was on previously to amiodarone. It was initially done IV and was later changed to oral. He was deemed a very poor candidate for anticoagulation, long-term given multiple falls, deconditioning and dementia. He was started and continued on full dose aspirin. He is instr ucted to continue amiodarone 400 p.o. b.i.d. for a total of 2 weeks, then 200 mg p.o. b.i.d. for 2 w eeks, then 200 mg p.o. daily and follow up with Cardiology as an outpatient. He was seen by Gastroenterology and underwent a PEG tube placement on 03/11/2017. He was tolerating tube feeds very well by the time of discharge and was asymptomatic. IV fluids were started initial ly, but were later discontinued. He did have complaints of some right upper extremity swelling and redness for which an ultrasound wa s obtained, which showed extensive superficial vessel DVT. This was discussed with the patient's wi fe and the risk and benefits of anticoagulation were discussed. At this time, we are choosing not t o treat it except for aspirin and warm compresses as the patient is at high risk for bleeding and de ath from anticoagulation. Orthopedics also saw the patient while in the hospital and some of his jarrell were removed that maame lauren present from his last hospitalization after his right hip fracture surgery. Rest of the jarrell w ill be removed as an outpatient. The patient needs to follow up with Dr. Damon in the clinic. Case management was consulted and initially, the patient was thought to be a candidate of inpatient rehabilitation, but was denied. For this reason, senior living facility was arranged for him. He will be discharged today as he is hemodynamically stable and medically ready for now, transitioned to next level of care. Discharge plan was discussed with the patient's who verbalized understa nding. All questions were answered. The patient was seen and examined. Please see hospitalist pro johnnie note for further detail including [id number] interaction. The patient was cleared by Cardio logy for discharge as well. Total time spent in the discharge of this patient 35 minutes.
--- NOTE | 2017-03-18 16:42 | EKG ---
Test Reason : Blood Pressure : / mmHG Vent. Rate : 111 BPM Atrial Rate : 111 BPM P-R Int : 130 ms QRS Dur : 072 ms QT Int : 368 ms P-R-T Axes : 056 -04 040 degrees QTc Int : 500 ms Undetermined rhythm Possible Inferior infarct , age undetermined Abnormal ECG Confirmed by JEANNE BAUMANN, AVA ([id number]), news video editor MAEGAN PAULINO ([id number]) on 03/18/2017 4:42:02 PM Referred By: Confirmed By:AVA ANGEL MD
== END 2017-03-17 18:17 | disposition swing bed (61) | DRG 308 ==
LOC: ERS 14:46 → 2NO 17:40
PROVIDERS: ADMIT Internal Medicine; ATTEND Internal Medicine
PROC: 0DB38ZX Excision of Lower Esophagus, Via Natural or Artificial Opening Endoscopic, Diagnostic (ICD-10-PCS; principal; 2017-03-11)
PROC: 0DH63UZ Insertion of Feeding Device into Stomach, Percutaneous Approach (ICD-10-PCS; 2017-03-11)
PROC: 3E0G76Z Introduction of Nutritional Substance into Upper GI, Via Natural or Artificial Opening (ICD-10-PCS; 2017-03-11)
DX: I48.0 Paroxysmal atrial fibrillation (principal); J69.0 Pneumonitis due to inhalation of food and vomit; R64 Cachexia; E87.0 Hyperosmolality and hypernatremia; I82.621 Acute embolism and thrombosis of deep veins of right upper extremity; R13.12 Dysphagia, oropharyngeal phase; E44.0 Moderate protein-calorie malnutrition; I10 Essential (primary) hypertension; Z91.81 History of falling; M19.90 Unspecified osteoarthritis, unspecified site; Z85.828 Personal history of other malignant neoplasm of skin; Z96.651 Presence of right artificial knee joint; Z79.82 Long term (current) use of aspirin; S72.91XD Unspecified fracture of right femur, subsequent encounter for closed fracture with routine healing; E87.6 Hypokalemia; Z66 Do not resuscitate; R62.7 Adult failure to thrive; K44.9 Diaphragmatic hernia without obstruction or gangrene; K22.8 Other specified diseases of esophagus; K22.70 Barrett's esophagus without dysplasia; K21.0 Gastro-esophageal reflux disease with esophagitis; Z68.21 Body mass index [BMI] 21.0-21.9, adult; G30.9 Alzheimer's disease, unspecified; F02.80 Dementia in other diseases classified elsewhere, unspecified severity, without behavioral disturbance, psychotic disturbance, mood disturbance, and anxiety; D53.9 Nutritional anemia, unspecified; D72.829 Elevated white blood cell count, unspecified
CPT/HCPCS: 36415; 80048; 80053; 80202; 81003; 83735; 84100; 85007; 85025; 85027; 87086; 88305; 88312; 88313; 93005; 93010; 94760; 96374; A4216; G8978-GP-CM; G8979-GP-CL; G8987-GO-CN; G8988-GO-CL; G8996-GN-CN; G8997-GN-CM; J0282; J0692; J1160; J2001; J2704; J3370; J7050; J7070; S0028

== ENCOUNTER → 2017-03-09 | Day surgery (SDC) | payer MEDICARE ==
--- NOTE | 2017-03-10 16:06 | EKG ---
Test Reason : PREOP Blood Pressure : / mmHG Vent. Rate : 159 BPM Atrial Rate : 129 BPM P-R Int : 000 ms QRS Dur : 084 ms QT Int : 314 ms P-R-T Axes : 000 009 178 degrees QTc Int : 510 ms Atrial fibrillation with rapid ventricular response with premature ventricular or aberrantly conduct ed complexes Marked ST abnormality, possible anterior subendocardial injury Abnormal ECG When compared with ECG of 23-FEB-2017 03:31, Criteria for Septal infarct are no longer Present Nonspecific T wave abnormality has replaced inverted T waves in Lateral leads Confirmed by DR. Elvia REDDING ([id number]) on 03/10/2017 4:05:52 PM Referred By: CASE Confirmed By:DR. Elvia REDDING
== END ==
LOC: SDC 13:01
PROVIDERS: ATTEND Internal Medicine
DX: Z01.810 Encounter for preprocedural cardiovascular examination (principal); I48.0 Paroxysmal atrial fibrillation
CPT/HCPCS: 93005; 93010